=== PATIENT | male | born 1960 | race Caucasian/White ===

== ENCOUNTER 2017-01-21 06:33 | Inpatient (IN) ==
--- NOTE | 2017-01-18 21:46 | Discharge Summary ---
<Nesha Galarza - Last Filed: 01/18/17 21:43> Date of Encounter: 01/18/17 - Discharge Diagnosis (1) Aseptic loosening of prosthetic knee Status: Acute Qualifiers: Encounter type: initial encounter Qualified Code(s): T84.038A - Mechanical loosening of other internal prosthetic joint, initial encounter; Z96.659 - Presence of unspecified artificial knee joint (2) Lumbar spondylosis Priority: Secondary Status: Chronic Qualifiers: Spinal osteoarthritis complication: unspecified spinal osteoarthritis Qualified Code(s): M47.816 - Spondylosis without myelopathy or radiculopathy, lumbar region (3) FRANCESCA (obstructive sleep apnea) Priority: Secondary Status: Chronic - Discharge Medications Home Medications: Cetirizine HCl [Zyrtec] 10 mg PO DAILY 02/18/16 [History] Citalopram [CeleXA] 20 mg PO DAILY 02/18/16 [History] Fluticasone Propionate Nasal [Flonase] 1 spr NS DAILY PRN 02/18/16 [History] Lisinopril/Hydrochlorothiazide [Zestoretic 20-12.5 mg Tablet] 1 each PO BID 03/01 [History] Montelukast [Singulair] 10 mg PO DAILY 02/18/16 [History] Pravastatin Sodium [Pravachol] 20 mg PO DAILY 02/18/16 [History] Aspirin Enteric Coated [Aspirin EC] 325 mg PO DAILY #21 tablet. 01/18/17 [Rx] OxyCODONE Immed Rel [Roxicodone 5 MG] 5 - 10 mg PO Q6HR PRN #40 tablet 01/18/17 [Rx] Aspirin Enteric Coated [Aspirin EC] 81 mg PO DAILY 01/21/17 [History] Meloxicam 15 mg PO DAILY 01/21/17 [History] Allergies/Adverse Reactions: Allergies No Known Allergies Allergy (Verified 01/21/17 07:41) Primary care physician: Radha Durant CNP - Patient Status Disposition: Home, Self-Care Condition: Good - Discharge Instructions Follow Up With: Nesha Galarza, PAC [Physician Keyliner] - 01/29/17 10:30 am Additional Instructions: Discharge Instructions: Total Knee Replacement Please call [facility] ([phone]), your Primary Care Physician, or report to the Emergency Room if you have any of the following symptoms: Nausea, vomiting, fever greater that 101.5, swelling, chest pain, shortness of breath, increased pain/redness/drainage/odor for your incision site, numbness/ tingling, or any other concerning symptoms. ACTIVITY:Weight-bearing as tolerated. You may progress off support (cruthches or walker) as tolerated. MEDICATIONS: Upon discharge resume your home medications. Take all the medications as prescribed. Take a stool softener if taking narcotic pain medications. Stool softeners are only effective if you drink enough fluids. Drink 6-8 glass of water or fluids a day, unless this is not allowed for another health problem. Despite using stool softeners, if you haven't had a bowel movement in 3 days, please switch to a gentle laxative. Gentle laxatives are sold over the counter. You should have a bowel movement within 24 hours, if not call the office. You will be discharged from the hospital with a prescription for pain medication. You are encouraged to decrease the use of narcotic pain medication as tolerated. Should you require a refill, please call the office. [facility] prescribes narcotic pain medication for only 4-6 weeks after surgery. If you require pain medication beyond this time periord, you may be referred to your Primary Care Physician or to the Pain Clinic for further evaluation. Plan ahead for refills on pain medication as many narcotics either need to be picked up at the office or mailed. It is best to call 48-72 hours in advance of needing a prescription refill so you don't run out of medication. To help control the post-operative pain, you may take NSAIDs (Aleve,Advil, Motrin, ibuprofen, naprosyn) or Tylenol as prescribed on the bottle in addition to the pain medication. ANTICOAGULATION (blood thinners): Continue your Aspirin, Lovenox or Coumadin as prescribed to help prevent a blood clot in the leg or in the lungs. As long as your incision remains dry and you tolerate the NSAIDs (Aleve, Advil, Motrin, ibuprofen, naprosyn), it is OK to use the NSAIDS while you are taking your anticoagulation medication. Should your incision start to drain, stop the NSAID and contact our office. Common symptoms of blood clot in the legs include: localized pain, swelling, calf tenderness, redness or discoloration of the skin. Blood clot in the lung symptoms include: shortness of breath, rapid pulse, sweating, and chest pain that worsens with deep breathing, coughing up blood, lightheadedness, feelings of anxiety. If you experience any of these symptoms notify your physician immediately, go to the emergency room, or if having trouble breathing, call 911. WOUND CARE: Leave the dressing on for 7 days. You may change the dressing if it becomes saturated greater than 50%. You can shower but not a tub bath or submerge your incision in water. Wash your hands with antibacterial soap, rinse and dry prior to any wound care. If you have james the visiting nurse or rehab facility can remove the stapes 10-14 [address] surgery [address] steri- strips across the wound. Leave the steri-strips in place until they fall off on their won. You may let water from the shower run on top of the steri-stirips. If you do not have a visiting nurse or rehab facility, you will need to return to the office at 10-14 days for the james to be removed. FOLLOW-UP: Please follow up with your surgeon in the orthopedic clinic in 4 weeks from the day of surgery. If you have james that need to be removed, you will need to come back to the office in 10-14 days from the day of surgery. - Hospital Course Hospital course: Mr. Rodriguez is a 56 year old male - Time Spent with Patient Total time spent providing and/or coordinating discharge services: <Merrick Beach - Last Filed: 01/22/17 08:38> Date of Encounter: 01/22/17 Time of Encounter: 08:38 - Discharge Diagnosis (1) Morbid obesity with BMI of 45.0-49.9, adult Priority: Secondary Status: Chronic (2) Aseptic loosening of prosthetic knee Priority: Primary Status: Acute Qualifiers: Encounter type: subsequent encounter Qualified Code(s): T84.038D - Mechanical loosening of other internal prosthetic joint, subsequent encounter; Z96.659 - Presence of unspecified artificial knee joint (3) Lumbar spondylosis Priority: Secondary Status: Chronic Qualifiers: Spinal osteoarthritis complication: unspecified spinal osteoarthritis Qualified Code(s): M47.816 - Spondylosis without myelopathy or radiculopathy, lumbar region (4) FRANCESCA (obstructive sleep apnea) Priority: Secondary Status: Chronic Primary care physician: Radha Durant CNP - Patient Status Functional capacity at discharge: uses cane/walker Overall status at discharge: patient is progressing back to baseline - Hospital Course Hospital course: Mr. Rodriguez is a 56 year old male The patient had an uneventful postoperative course. They received antibiotics and physical therapy and were discharged in stable condition. There will follow -up in the office in 2 weeks. Aspirin DVT prophylaxis - Time Spent with Patient Total time spent providing and/or coordinating discharge services:
--- NOTE | 2017-01-21 06:53 | History & Physical Report ---
Date of Encounter: 01/21/17 Time of Encounter: 06:52 24 Hour HP Update - Instructions Instructions: If the History and Physical is less than 30 days old and was completed prior to A.M. admission and or procedure and has NOT been updated on calendar day of procedure please complete this update prior to performing procedure. - Update Patient reports changes in Medical Condition: No Changes in assessment/condition: No Changes in Medication: No Preop tests/diagnostics Reviewed: Yes Surgery Remains Indicated: Yes Consent for Planned Operative Procedure(s) Verified: Yes - Pre-Operative Checklist Preoperative Checklist Indicated: No Prophylactic Antibiotic Ordered: Yes Is VTE Prophylaxis Indicated?: Yes
[2017-01-21] MEDS ORDERED: CeFAZolin Pre 2,000 MG/100 ML 2,000 MG/100 ML BAG IVPB ONE (07:04)
[2017-01-21] MEDS ORDERED: Albuterol 2.5 MG/3 ML NEBULIZER IH ONE (07:04)
--- NOTE | 2017-01-21 07:09 | Anesthesia Evaluation PreOp ---
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 History: Denies Any Significant HX Other Medical History: Denies Any Significant HX Anesthesia History: No Prior Anesthetic Complications, Past Anesthesia Alcohol Use: none Drug use: none Medications and Allergies Cetirizine HCl [Zyrtec] 10 mg PO DAILY 02/18/16 [History] Citalopram [CeleXA] 20 mg PO DAILY 02/18/16 [History] Fluticasone Propionate Nasal [Flonase] 1 spr NS DAILY 02/18/16 [History] Gabapentin [Neurontin] 300 mg PO BID 02/18/16 [History] Lisinopril/Hydrochlorothiazide [Zestoretic 20-12.5 mg Tablet] 1 each PO DAILY [History] Montelukast [Singulair] 10 mg PO HS 02/18/16 [History] Pravastatin Sodium [Pravachol] 20 mg PO DAILY 02/18/16 [History] Hyoscyamine SL [Levsin SL] 0.125 mg SL TID #7 tab.subl 09/17/16 [Rx] Omeprazole [PriLOSEC] 40 mg PO DAILY #14 capsule. 09/17/16 [Rx] Loratadine/Pseudophed (12 HR) [Claritin D (12HR)] 1 each PO BID #20 tab.er.12h 12/04/16 [Rx] MethylPREDNISolone [Medrol] 4 mg PO DAILY #21 tablet 12/04/16 [Rx] Aspirin Enteric Coated [Aspirin EC] 325 mg PO DAILY #21 tablet. 01/18/17 [Rx] OxyCODONE Immed Rel [Roxicodone 5 MG] 5 - 10 mg PO Q6HR PRN #40 tablet 01/18/17 [Rx] Allergies No Known Allergies Allergy (Verified 11/21/16 09:23) - Meds/Allergy Pre-op Review Medications Reviewed: Yes Allergies Reviewed: Yes Beta Blockers on Current Med List: No Anesthesia Results - Labs Laboratory Tests 01/08/17 01/08/17 01/08/17 08:20 08:20 08:20 WBC 4.7 Hgb 13.0 Hct 41.4 Plt Count 252 INR 1.2 Sodium 142 Potassium 4.0 Chloride 107 Carbon Dioxide 23 BUN 15 Creatinine 0.88 - Imaging EKG: image reviewed (SR galicia sinus arrythmia, IRBBB) Anesthesia Exam O2 Sat Height 1.55 m Height 1.55 m Weight 115.212 kg Weight 115.212 kg O2 Sat by Pulse Oximetry 96 Vital Signs Temp Pulse Resp BP Pulse Ox 99.0 F 66 18 125/79 96 01/21/17 06:48 01/21/17 06:48 01/21/17 06:48 01/21/17 06:48 01/21/17 06:48 Height: 5'1'' Weight: 254# NPO (# of Hours): > 8 hrs Pain Scale: 0 Pain Scale Used: Numeric (1 - 10) - HEENT Pupil (Motor): Pupils equal, EOMI Mallampati: III Teeth: Normal Oral Opening: Less than or equal to 3 - METAL SASH SETTER LOC: Oriented METAL SASH SETTER Motor: Normal RUE, Normal LUE, Normal RLE, Normal LLE, Normal Face METAL SASH SETTER Sensory: Normal: RUE, LUE, RLE, LLE, Face - Cardiac Rhythm: Regular Murmur: None JVD: No Carotid Bruit: No - Pulmonary Breath Sounds: bilateral Clear Respiratory Effort: Symmetrical Anesthesia Assess/Plan ASA Score: 3 Modified Marla Scale for Level of Consciousness: Cooperative, oriented, and tranquil Anesthetic Plan: General, Regional (Right Femoral Nerve Block) Autologous Blood: Yes Monitoring Plan: Standard Monitors Recovery Plan: PACU
[2017-01-21] MEDS ORDERED: *HR* Midazolam HCl 2 MG/2 ML VIAL ONE (07:12)
[2017-01-21] MEDS ORDERED: *HR* FentaNYL (PF) 100 MCG/2 ML VIAL ONE (07:12)
[2017-01-21] MEDS ORDERED: *HR* Propofol 200 MG/20 ML VIAL IVP ONE (07:13)
[2017-01-21] MEDS ORDERED: Lidocaine -MPF 2% 2 ML VIAL ONE (07:14)
[2017-01-21] MEDS ORDERED: Lidocaine -MPF 4% 5 ML AMPUL ONE (07:15)
[2017-01-21] MEDS ORDERED: Ringers Solution, Lactated 1,000 ML IVC SCH ×2 (07:15→09:00)
[2017-01-21] MEDS ORDERED: ROPIVACAINE HCL/PF 0.5% 30 ML VIAL ONE (07:57)
[2017-01-21] MEDS ORDERED: Bupivacaine/Clonidine Syringe 1 EACH SYRINGE ONE (07:58)
[2017-01-21] MEDS ORDERED: Ondansetron 4 MG/2 ML VIAL ONE (08:44)
[2017-01-21] MEDS ORDERED: Dexamethasone 4 MG/ML VIAL ONE (08:44)
[2017-01-21] MEDS ORDERED: Ketorolac 30 MG/ML VIAL ONE (08:44)
[2017-01-21] MEDS ORDERED: *HR* Promethazine 25 MG/ML VIAL IVP PRN (08:55)
[2017-01-21] MEDS ORDERED: *HR* HYDROmorphone (PF) 1 MG/ML SYRINGE IVP PRN ×2 (08:55→11:10)
--- NOTE | 2017-01-21 08:59 | Anesthesia Procedures ---
Date of Encounter: 01/21/17 Time of Encounter: 08:00 Procedures: Anesthesia - Nerve Block Procedure Date: 01/21/17 Time: 08:00 Allergies/Adv Reactions: NKA Pre-op Diagnosis: Right knee aseptic loosening tibia Surgical Procedure: Right total knee arthroplasty revision Checklist: Correct Patient Identifier, Correct procedure, History checked Correct side: Right Blood Thinner: No Monitor Applied: EKG, BP, Pulse Oximetry Supplemental Oxygen via Nasal Cannula (L/min): 2 Sedation: Versed (mg): 2 Sedation: Fentanyl (mcg): 100 Indication: Post Op Analgesia Pre-op Neuro Deficits: No Block Type: Femoral, Other (IPAC) Catheter placed: No Sterile Technique: Yes Ultrasound used: Yes Anatomy identified: Yes Visual spread of Local: Yes Neuro Stimulation: Yes Nerve Stimulator Range: 0.2 - 0.4 mA Blood on Needle Aspiration: No Smooth Injection of Local: Yes Pain with Injection of Local: No Prep: Chlorhexadine Needle: 22 x 50 mm Stimuplex, 21 x 100 mm Stimuplex Local: 0.25% Bupivicaine w/Clonidine 20 mcg/cc (20ml), Ropivacaine (30ml) Volume (cc): 30ml rop 20ml bup ipac Number of Attempts: 1 Complications: None/effective block Vitals: Vital Signs Temperature 99.0 F 01/21/17 06:48 Pulse Rate 66 01/21/17 06:48 Respiratory Rate 18 01/21/17 06:48 Blood Pressure 125/79 01/21/17 06:48 O2 Sat by Pulse Oximetry 96 01/21/17 06:48 Temperature 99.0 F 01/21/17 07:21 Pulse Rate 76 01/21/17 07:55 Respiratory Rate 16 01/21/17 07:55 Blood Pressure 129/75 01/21/17 07:55 O2 Sat by Pulse Oximetry 93 L 01/21/17 07:55
--- NOTE | 2017-01-21 09:11 | Orthopedic Operative Note ---
Date of procedure: 01/21/17 Pre-op diagnosis: Aseptic loosening right tibial component Post-op diagnosis: same Procedure: Procedure: 8 revision tibial component Estimated blood loss: 200 cc Hardware: Arthrex tibia size 5, 14 x 80 stem, 16 PS Nia Exam Under anesthesia: Full flexion full extension well-healed incision no swelling or erythema no varus valgus instability Procedural Notes: Loosening of tibial component Operative procedure: The patient was brought to the operating room and placed on the operating room table. After general anesthesia was administered the operative knee was examined. Findings were noted in the exam under anesthesia. The operative extremity was prepped and draped in sterile surgical fashion. The patient received IV antibiotics prior to skin incision. A standard midline incision was made centered over the patella. The incision was made through the skin and subcutaneous tissue through the old incision. A medial parapatellar tendon approach was performed. Care was taken to preserve tissue along the medial aspect of the patella. And to protect the patella tendon. The deep MCL was released off the medial tibia. The infra patella fat pad was excised. Cultures were obtained as well as Gram stain. 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 An extensive synovectomy was performed. The knee was brought into flexion the tibial poly-was removed. The femur was well fixed. Attention was then turned to the tibial component. The tibial component was loose and removed with an osteotome without any bone loss. Tibia was recut just below the level of the cement mantle. The tibia was prepared first sized to a 5 reamed to a 14 x 80 stem. The finishing punch was seated. Trial had good fit and fixation. Trial reduction revealed full extension and full flexion no varus valgus instability with an 14 PS Nia. Trial components removed knee sat for 2 minutes with a Betadine saline solution. It was irrigated out with pulse irrigation. Components were assembled on the back table. The tibia cemented. The 16 PS Nia was seated and secure. The had full flexion and full extension and excellent patella tracking no varus valgus instability. After the cement hardened the knee was irrigated out again. The knee was taken through a range of motion had excellent patella tracking. The extensor mechanism was closed with a running #2 Fiberwire suture and a running #2 PDS suture. The deep tissue was irrigated and closed deep with #1 PDS suture superficially with 0 PDS suture. The skin was closed with skin james. The patient was placed in a sterile dressing and postoperative brace. They were extubated and transferred to recovery room in stable condition. Anesthesia: TAMRA Surgeon: Merrick Beach Private Duty Aide: Nesha Galarza Condition: stable Disposition: PACU
--- NOTE | 2017-01-21 10:05 | Anesthesia Evaluation Post Op ---
Date of Encounter: 01/21/17 Time of Encounter: 10:04 - Vital Signs Vital Signs: Vital Signs/O2 Sat, Most Current Temp Pulse Resp BP Pulse Ox 98.1 F 70 16 113/70 94 L 01/21/17 09:37 01/21/17 09:57 01/21/17 09:57 01/21/17 09:57 01/21/17 09:57 - Lungs Lungs: Clear Ascult./Percussion - Airway Airway: Non-obstructed - Cardiovascular Regular Rate - Mental Status Mental Status: Alert & Oriented, Answers Appropriately - Pain Pain Scale: 0 Pain Scale used: Numeric (1 - 10) - Nausea Vomiting Nausea Vomiting: Not Present - Hydration Hydration: NPO, Has not voided - Discharge PostOp Status: Transfer Patient to floor
[2017-01-21 10:53] LABS: Hematocrit 38.9 % (37.5-50.1); Hemoglobin 12.3 g/dL (12.9-16.9)
[2017-01-21] MEDS ORDERED: Ondansetron 4 MG/2 ML VIAL IVP PRN (11:10)
[2017-01-21] MEDS ORDERED: *HR* OxyCODONE Immed Rel 5 MG TABLET PO PRN (11:10)
[2017-01-21] MEDS ORDERED: MOM Conc 10 ML UD.LIQ PO PRN (11:10)
[2017-01-21] MEDS ORDERED: Acetaminophen 325 MG TABLET PO PRN (11:10)
[2017-01-21] MEDS ORDERED: Naloxone 0.4 MG/ML INJ IVP PRN (11:10)
[2017-01-21] MEDS ORDERED: Sennosides 8.6 MG TABLET PO PRN (11:10)
[2017-01-21] MEDS ORDERED: Temazepam 15 MG CAPSULE PO PRN (11:10)
[2017-01-21] MEDS ORDERED: Fluticasone Propionate Nasal 50 MCG/SPRAY BOTTLE NS PRN (11:10)
[2017-01-21] MEDS: Aspirin Enteric Coated 81 MG Tablet PO SCH (13:33)
[2017-01-21] MEDS: Ringers Solution, Lactated 1,000 ML IVC SCH (13:33)
[2017-01-21] MEDS: Loratadine 10 MG TABLET PO SCH (13:33)
[2017-01-21] MEDS: Lisinopril-HCTZ 20-12.5mg TABLET PO SCH ×2 (13:40→20:52)
[2017-01-21] MEDS: *HR* OxyCODONE Immed Rel 5 MG TABLET PO PRN ×2 (15:22→22:01)
[2017-01-21] MEDS: ceFAZolin 2,000 MG in D5% in Water 100 ML IVPB SCH (17:54)
[2017-01-21] MEDS ORDERED: *HR* Enoxaparin 30 MG/0.3 ML SYRINGE SQ SCH (18:00)
[2017-01-21] MEDS: *HR* Enoxaparin 30 MG/0.3 ML SYRINGE SQ SCH (19:11)
[2017-01-22] MEDS: ceFAZolin 2,000 MG in D5% in Water 100 ML IVPB SCH (01:13)
[2017-01-22] MEDS: Ringers Solution, Lactated 1,000 ML IVC SCH (02:16)
[2017-01-22] MEDS: *HR* Enoxaparin 30 MG/0.3 ML SYRINGE SQ SCH (05:08)
[2017-01-22 05:27] LABS: Hematocrit 33.5 % (37.5-50.1); Hemoglobin 10.8 g/dL (12.9-16.9)
[2017-01-22 05:35] LABS: BUN/Creatinine Ratio 18 (6-26); Blood Urea Nitrogen 14 mg/dL (8-26); Calcium 8.3 mg/dL (8.6-10.8); Carbon Dioxide 26 mEq/L (19-29); Chloride 103 mEq/L (98-109); Glucose 103 mg/dL (70-99); Osmolality,Calculated 285 (280-300); Sodium 137 mEq/L (136-145); eGFR For African Americans > 60 (> 60); eGFR For Non-African Americans > 60 (> 60)
--- NOTE | 2017-01-22 08:39 | Orthopedics Progress Note ---
Date of Encounter: 01/22/17 Time of Encounter: 08:39 - Assessment and Plan (1) Morbid obesity with BMI of 45.0-49.9, adult Current Visit: Yes Status: Chronic (2) Aseptic loosening of prosthetic knee Current Visit: No Status: Acute Qualifiers: Encounter type: subsequent encounter Qualified Code(s): T84.038D - Mechanical loosening of other internal prosthetic joint, subsequent encounter; Z96.659 - Presence of unspecified artificial knee joint (3) Lumbar spondylosis Current Visit: No Status: Chronic Qualifiers: Spinal osteoarthritis complication: unspecified spinal osteoarthritis Qualified Code(s): M47.816 - Spondylosis without myelopathy or radiculopathy, lumbar region (4) FRANCESCA (obstructive sleep apnea) Current Visit: No Status: Chronic Subjective Interval history: Patient was seen this morning doing well without complaints. Afebrile vital signs stable. Operative extremity: Neurovascularly intact Dressing clean dry and intact Calves nontender Assessment and plan: Continue with postoperative care Discharge today Objective Vital signs: Vital Signs Temp Pulse Resp BP Pulse Ox 01/22/17 06:35 97.8 F 68 16 114/69 95 01/22/17 04:01 97.8 F 76 16 114/65 96 01/22/17 00:30 98.0 F 71 16 103/51 95 01/21/17 19:14 98.3 F 76 16 123/67 92 L 01/21/17 18:37 98.0 F 76 18 116/65 95 01/21/17 14:53 98.6 F 84 18 121/69 95 01/21/17 12:10 98.2 F 68 15 119/74 96 01/21/17 11:10 72 14 112/71 95 01/21/17 10:53 70 15 117/75 95 01/21/17 10:36 95 01/21/17 10:34 95 01/21/17 10:27 98.0 F 69 14 113/72 95 01/21/17 10:07 98 F 69 16 112/68 95 01/21/17 09:57 70 16 113/70 94 L 01/21/17 09:47 75 16 112/70 95 01/21/17 09:37 98.1 F 84 16 107/69 93 L Intake and Output 03/08/17 03/09/17 03/09/17 23:59 07:59 15:59 Intake Total 800 / 800 1000 / 1000 Output Total 800 / 800 900 / 900 Balance 0 / 0 100 / 100 Intake: IV Fluids 100 / 100 1000 / 1000 Lactated Ringers 1,000 ML 1000 / 1000 @ 75 mls/hr IVC .[id number] [facility] Rx#:[id number] Ancef 2,000 MG In 100 / 100 Dextrose 5% 100 ML @ 200 mls/hr IVPB Q8HR [facility] Rx#: [id number] Oral 700 / 700 Output: Urine 800 / 800 900 / 900 Other: Meal Dinner Percent of Meal Consumed 100% - Labs CBC & BMP: 01/22/17 05:11 01/22/17 05:11 Labs: Abnormal lab results Hgb 10.8 g/dL (12.9-16.9) L D 01/22/17 05:11 Hct 33.5 % (37.5-50.1) L 01/22/17 05:11 Glucose 103 mg/dL (70-99) H 01/22/17 05:11 Calcium 8.3 mg/dL (8.6-10.8) L 01/22/17 05:11 - VTE Documentation of Mechanical Device: Venous foot pump, device Consult Discharge Plan - Plan Additional Instructions: Discharge Instructions: Total Knee Replacement Please call [facility] ([phone]), your Primary Care Physician, or report to the Emergency Room if you have any of the following symptoms: Nausea, vomiting, fever greater that 101.5, swelling, chest pain, shortness of breath, increased pain/redness/drainage/odor for your incision site, numbness/ tingling, or any other concerning symptoms. ACTIVITY:Weight-bearing as tolerated. You may progress off support (cruthches or walker) as tolerated. MEDICATIONS: Upon discharge resume your home medications. Take all the medications as prescribed. Take a stool softener if taking narcotic pain medications. Stool softeners are only effective if you drink enough fluids. Drink 6-8 glass of water or fluids a day, unless this is not allowed for another health problem. Despite using stool softeners, if you haven't had a bowel movement in 3 days, please switch to a gentle laxative. Gentle laxatives are sold over the counter. You should have a bowel movement within 24 hours, if not call the office. You will be discharged from the hospital with a prescription for pain medication. You are encouraged to decrease the use of narcotic pain medication as tolerated. Should you require a refill, please call the office. [facility] prescribes narcotic pain medication for only 4-6 weeks after surgery. If you require pain medication beyond this time periord, you may be referred to your Primary Care Physician or to the Pain Clinic for further evaluation. Plan ahead for refills on pain medication as many narcotics either need to be picked up at the office or mailed. It is best to call 48-72 hours in advance of needing a prescription refill so you don't run out of medication. To help control the post-operative pain, you may take NSAIDs (Aleve,Advil, Motrin, ibuprofen, naprosyn) or Tylenol as prescribed on the bottle in addition to the pain medication. ANTICOAGULATION (blood thinners): Continue your Aspirin, Lovenox or Coumadin as prescribed to help prevent a blood clot in the leg or in the lungs. As long as your incision remains dry and you tolerate the NSAIDs (Aleve, Advil, Motrin, ibuprofen, naprosyn), it is OK to use the NSAIDS while you are taking your anticoagulation medication. Should your incision start to drain, stop the NSAID and contact our office. Common symptoms of blood clot in the legs include: localized pain, swelling, calf tenderness, redness or discoloration of the skin. Blood clot in the lung symptoms include: shortness of breath, rapid pulse, sweating, and chest pain that worsens with deep breathing, coughing up blood, lightheadedness, feelings of anxiety. If you experience any of these symptoms notify your physician immediately, go to the emergency room, or if having trouble breathing, call 911. WOUND CARE: Leave the dressing on for 7 days. You may change the dressing if it becomes saturated greater than 50%. You can shower but not a tub bath or submerge your incision in water. Wash your hands with antibacterial soap, rinse and dry prior to any wound care. If you have james the visiting nurse or rehab facility can remove the stapes 10-[address] surgery [address] steri- strips across the wound. Leave the steri-strips in place until they fall off on their won. You may let water from the shower run on top of the steri-stirips. If you do not have a visiting nurse or rehab facility, you will need to return to the office at 10-14 days for the james to be removed. FOLLOW-UP: Please follow up with your surgeon in the orthopedic clinic in 4 weeks from the day of surgery. If you have james that need to be removed, you will need to come back to the office in 10-14 days from the day of surgery. Referrals: Nesha Galarza, PAC [Physician Rn Geriatric] - 01/29/17 10:30 am
[2017-01-22] MEDS: Lisinopril-HCTZ 20-12.5mg TABLET PO SCH (09:22)
[2017-01-22] MEDS: Aspirin Enteric Coated 81 MG Tablet PO SCH (09:22)
[2017-01-22] MEDS: Loratadine 10 MG TABLET PO SCH (09:23)
[2017-01-22] MEDS: *HR* OxyCODONE Immed Rel 5 MG TABLET PO PRN (10:08)
[2017-01-22 11:53] VITALS: BP 117/68
== END 2017-01-22 12:30 | disposition home or self-care (01) | DRG 467 ==
LOC: SAMDAY 06:33 → 3NENU 11:47 → 3ANU 12:29 → 3NENU 19:06
PROVIDERS: ADMIT Orthopaedic Surgery; ATTEND Orthopaedic Surgery

== ENCOUNTER 2018-01-29 19:18 | Observation (INO) ==
--- NOTE | 2018-01-29 20:06 | Emergency Department Note ---
Disposition Clinical Impression: Chest pain Qualifiers: Chest pain type: unspecified Qualified Code(s): R07.9 - Chest pain, unspecified Disposition: Admitted As Inpatient Condition: Good Time of Disposition: 00:41 Chest Pain HPI - General Chief Complaint: ED Chest Pain Stated Complaint: Chest pressure/hernia/pedro Time Seen by Provider: 01/29/18 19:50 Source: patient Mode of arrival: ambulatory Limitations: no limitations Vital Signs Reviewed: Yes Nursing Notes Reviewed: Yes - History of Present Illness HPI Narrative: Patient is a 57-year-old male with past medical history of hypertension and high cholesterol, recent cervical spinal fusion on 01/16/2018. He presents today due to epigastric chest pressure that radiates to his right chest. He also claims of pleuritic type chest pain that is sharp in nature when he takes a deep breath in and out. Denies any other radiation, nausea, vomiting, sweating, fevers, diarrhea, abdominal pain. Denies any neck pain or back pain. He does admit to some mild shortness of breath. He felt that this is possibly gas because he has been belching all day but he states that it has been constant and has not lessened at all. Denies any previous ND or stents. Severity scale (1-10): 7 - Related Data Home Medications Medication Instructions Recorded Confirmed Aspirin 325 mg PO DAILY 01/06/18 01/06/18 Celecoxib [Celebrex] 200 mg PO DAILY 01/06/18 01/06/18 Cetirizine HCl [All Day Allergy] 10 mg PO DAILY 01/06/18 01/06/18 Citalopram [CeleXA] 20 mg PO DAILY 01/06/18 01/06/18 Dicyclomine [Bentyl] 20 mg PO QID 01/06/18 01/06/18 Famotidine [Pepcid] 20 mg PO HS 01/06/18 01/06/18 Fluticasone Propionate Nasal 2 spr NS DAILY PRN 01/06/18 01/06/18 [Flonase] Lisinopril-HCTZ 20-12.5 [Prinzide 1 tab PO DAILY 01/06/18 01/06/18 20-12.5] Meloxicam 15 mg PO DAILY 01/06/18 01/06/18 Montelukast [Singulair] 10 mg PO HS 01/06/18 01/06/18 Pravastatin Sodium [Pravachol] 40 mg PO HS 01/06/18 01/06/18 Previous Rx's Medication Instructions Recorded OxyCODONE Immed Rel [Roxicodone 5 5 mg PO Q4HR PRN 7 Days #30 tablet 01/07/18 MG] Allergies Allergy/AdvReac Type Severity Reaction Status Date / Time No Known Allergies Allergy Verified 01/06/18 07:20 All systems ED: reviewed and negative except as stated. Constitutional: Denies: fever Cardiovascular: Reports: chest pain. Denies: palpitations Respiratory: Reports: dyspnea. Denies: cough, wheezes Gastrointestinal: Denies: abdominal pain, nausea, vomiting, diarrhea Genitourinary: Denies: urgency, dysuria Integumentary: Denies: rash Neurological: Denies: headache, weakness, numbness, paresthesias Chest Pain PMH - Past Medical History Medical history: Reports: other Surgical history: Reports: other Psychiatric history: Reports: no psych history - Social History Smoking Status: Never smoker Alcohol use: Reports: none Drug use: Reports: none Physical Exam - General Limitations: no limitations General appearance: alert - Head Head exam: atraumatic, normocephalic, normal inspection - Eye Eye exam: Present: normal appearance, PERRL, EOMI - ENT ENT exam: normal exam, normal oropharynx, mucous membranes moist - Neck Neck exam: Present: normal inspection, full ROM, trachea midline - Chest Chest inspection: Present: normal inspection, symmetric chest wall rise. Absent : tenderness, rash - Respiratory Respiratory exam: Present: normal lung sounds bilaterally - Cardiovascular Cardiovascular exam: Present: regular rate, normal rhythm, normal heart sounds - Abdominal Exam Abdominal exam: Present: soft, Non-Tender. Absent: tenderness, distention, guarding, rebound, rigidity - Extremities Exam Extremities exam: Present: normal inspection, full ROM. Absent: tenderness, pedal edema - Neurological Exam Neurological exam: Present: alert, oriented X3 - Psychiatric Psychiatric exam: Present: normal affect, normal mood - Skin Skin exam: Present: warm, dry, intact, normal color Course Course Narrative: Vitals within normal limits on my exam. Physical exam was benign. Heart regular rate and rhythm, lungs clear to auscultation, abdomen soft and nontender. Patient no acute distress. Blood pressure is systolic 120s. We will give the patient fentanyl for pain control and aspirin 325 mg. We will hold off on nitroglycerin for now for fear of dropping the patient's pressure. We will obtain basic cardiac workup including chest x-ray, EKG, troponin, we will also obtain d-dimer due to concern for possible PE after recent surgery. 00:38 EKG showed normal sinus rhythm with no acute ST changes. Chest x-ray showed possible left pleural effusion. D-dimer was elevated. chest CTA showed no evidence of any PE. No noting of pleural effusion on chest CT. Troponin negative. Patient required fentanyl and Nubain for pain control. He was also sweating on rechecks. I do not feel comfortable with sending the patient home. He said this chest pain was gone on the most recent reevaluation. However, I recommended that he be admitted for chest pain rule out. Patient was agreeable with this plan. Chest X-Ray 01/29/18 19:25 IMPRESSION: 1. Question left pleural effusion with mild left basilar atelectasis. 2. Mild elevation of the left hemidiaphragm. D/ / Onesimo Desir MD / Onesimo Desir MD Interpreting Provider: Onesimo Desir MD Chest CTA 01/29/18 21:28 IMPRESSION: No evidence of pulmonary embolism or acute pulmonary abnormality. Low lung volume study with elevation of left hemidiaphragm. Scattered subsegmental atelectatic changes are noted. D/ / 01/29/2018 22:30:02 Jere Bowman MD / [facility] Interpreting Provider: Jere Bowman MD Vital Signs Temperature 98.2 F 01/29/18 19:20 Pulse Rate 94 01/29/18 19:20 Respiratory Rate 16 01/29/18 19:20 Blood Pressure 138/85 01/29/18 19:20 O2 Sat by Pulse Oximetry 98 01/29/18 19:20 Temperature 98.2 F 01/29/18 19:20 Pulse Rate 74 01/30/18 00:08 Respiratory Rate 18 01/30/18 00:33 Blood Pressure 120/78 01/30/18 00:33 O2 Sat by Pulse Oximetry 96 01/30/18 00:08 Oxygen Delivery Oxygen Delivery Room Air Chest Pain - MDM Narrative Medical decision making narrative: Vitals within normal limits on my exam. Physical exam was benign. Heart regular rate and rhythm, lungs clear to auscultation, abdomen soft and nontender. Patient no acute distress. Blood pressure is systolic 120s. We will give the patient fentanyl for pain control and aspirin 325 mg. We will hold off on nitroglycerin for now for fear of dropping the patient's pressure. We will obtain basic cardiac workup including chest x-ray, EKG, troponin, we will also obtain d-dimer due to concern for possible PE after recent surgery. 00:38 EKG showed normal sinus rhythm with no acute ST changes. Chest x-ray showed possible left pleural effusion. D-dimer was elevated. chest CTA showed no evidence of any PE. No noting of pleural effusion on chest CT. Troponin negative. Patient required fentanyl and Nubain for pain control. He was also sweating on rechecks. I do not feel comfortable with sending the patient home. He said this chest pain was gone on the most recent reevaluation. However, I recommended that he be admitted for chest pain rule out. Patient was agreeable with this plan. - Medical Records Medical records reviewed: Yes I reviewed the patient's medical records. - Lab Data Lab results reviewed: Yes I reviewed the patient's lab results. Result diagrams: 01/29/18 20:00 01/29/18 20:00 Lab Results 01/29/18 01/29/18 01/29/18 Range/Units 20:00 20:00 20:00 WBC 6.4 (4.3-11.1) K/mcL RBC 5.02 (4.19-5.50) M/mcL Hgb 12.8 L (12.9-16.9) g/dL Hct 40.5 (37.5-50.1) % MCV 80.7 L (83.0-100.0) fL MCH 25.5 L (28.0-33.3) pg MCHC 31.6 (31.6-35.5) g/dL RDW 14.3 (11.5-14.5) % Plt Count 292 (140-400) K/mcL MPV 9.5 (9.4-12.4) fL Immature Gran % 0.3 (0-4) % Seg Neutrophils % 58.4 % Lymphocytes % 27.5 % Monocytes % 9.0 % Eosinophils % 3.9 % Basophils % 0.9 % Neutrophils # 3.7 (1.6-8.9) K/mcL Lymphocytes # 1.8 (0.6-4.6) K/mcL Monocytes # 0.6 (0.0-1.3) K/mcL Eosinophils # 0.3 (0.0-0.6) K/mcL Basophils # 0.1 (0.0-0.2) K/mcL Immature Plt Fraction 4.2 (1.1-6.1) % PT 11.5 (9.4-12.1) Seconds INR 1.1 APTT 36.8 H (26.0-36.0) Seconds D-Dimer 2384 H (0-500) ng/mLFEU Sodium 137 (136-145) mEq/L Potassium 3.5 (3.5-5.1) mEq/L Chloride 104 (98-107) mEq/L Carbon Dioxide 22 L (23-29) mEq/L BUN 13 (6-20) mg/dL Creatinine 0.86 (0.70-1.30) mg/dL Est GFR ( Amer) > 60 (> 60) Est GFR (Non-Af Amer) > 60 (> 60) BUN/Creatinine Ratio 15 (6-26) Glucose 117 H (70-105) mg/dL Calculated Osmolality 285 (280-300) Calcium 9.1 (8.6-10.3) mg/dL Troponin I < 0.03 (< 0.04) ng/mL - Radiology Data Radiology results reviewed: Yes I reviewed the patient's radiology results. Chest X-Ray 01/29/18 19:25 IMPRESSION: 1. Question left pleural effusion with mild left basilar atelectasis. 2. Mild elevation of the left hemidiaphragm. D/ / Onesimo Desir MD / Onesimo Desir MD Interpreting Provider: Onesimo Desir MD Chest CTA 01/29/18 21:28 IMPRESSION: No evidence of pulmonary embolism or acute pulmonary abnormality. Low lung volume study with elevation of left hemidiaphragm. Scattered subsegmental atelectatic changes are noted. D/ / 01/29/2018 22:30:02 Jere Bowman MD / [facility] Interpreting Provider: Jere Bowman MD - EKG Data EKG attestation: Yes I reviewed and interpreted this EKG. EKG results narrative: 01/29/2018 at 19:29. Normal sinus rhythm. Rate 93. AR 122. QRS 114. QTC 396. Normal axis. No acute ST elevation or depression. Possible right bundle branch block in V1. This is unchanged from previous EKG on 12/30/2017. S.B.A.R. - S.B.A.R. Situation: Demographics, MOA Background: Presenting Complaint, Relevant PMH, Meds, & Allergies Assessment: Vital Signs, Course and respsone to treatment, Exam Concerns, Patient/Family Expectation, Pertinant Lab Results, Outstanding Labs Recommendation: Barrier(s) to disposition, Recommendation based on pending studies, treatments, or consults S.B.A.R. Report Given to: Dr. Crowe Attestation Statement - Attestation Attestation: I, Pradip Womack MD, personally evaluated this patient and discussed their management with the resident physician. I reviewed the resident's note and agree with the documented findings, medical decision making, and plan of care. 57-year-old male presents to the emergency department with a complaint of some right lower chest pain which started this afternoon. Pain is worse with deep breathing. No cough or fever. No radiation of the pain. Some shortness of breath. No history of heart disease. On examination patient is a well-developed obese male in no acute distress. He is alert and oriented 3. There is no cyanosis or diaphoresis. Chest is nontender to palpation. Breath sounds are clear and equal bilaterally. Heart regular rate and rhythm. Abdomen soft and nontender with normal bowel sounds. Labs reviewed. Markedly elevated d-dimer. Chest x-ray shows: 1. Question left pleural effusion with mild left basilar atelectasis. 2. Mild elevation of the left hemidiaphragm. CTA of the chest showed: No evidence of pulmonary embolism or acute pulmonary abnormality. EKG shows a normal sinus rhythm with a rate of 93. Moderate IVCD. No acute ST segment elevation or depression. The hospitalist, Dr. Crowe, was consulted and accepted admission of the patient.
[2018-01-29] MEDS ORDERED: Aspirin 81 MG TAB.CHEW PO ONE (20:08)
[2018-01-29] MEDS ORDERED: *HR* FentaNYL (PF) 100 MCG/2 ML VIAL IVP ONE (20:08)
[2018-01-29 20:13] LABS: Basophils # 0.1 K/mcL (0.0-0.2); Basophils % 0.9 %; Eosinophils # 0.3 K/mcL (0.0-0.6); Eosinophils % 3.9 %; Hematocrit 40.5 % (37.5-50.1); Hemoglobin 12.8 g/dL (12.9-16.9); Immature Granulocytes % 0.3 % (0-4); Immature Platelets 4.2 % (1.1-6.1); Lymphocytes # 1.8 K/mcL (0.6-4.6); Lymphocytes % 27.5 %; Mean Corpuscular HGB Conc 31.6 g/dL (31.6-35.5); Mean Corpuscular Hemoglobin 25.5 pg (28.0-33.3); Mean Corpuscular Volume 80.7 fL (83.0-100.0); Mean Platelet Volume 9.5 fL (9.4-12.4); Monocytes # 0.6 K/mcL (0.0-1.3); Neutrophils # 3.7 K/mcL (1.6-8.9); Platelet Count 292 K/mcL (140-400); Red Blood Count 5.02 M/mcL (4.19-5.50); Red Cell Distribution Width 14.3 % (11.5-14.5); Segmented Neutrophils % 58.4 %
[2018-01-29 20:18] LABS: INR 1.1; Prothrombin Time 11.5 Seconds (9.4-12.1)
[2018-01-29 20:20] LABS: Activated Partial Thrombo Time 36.8 Seconds (26.0-36.0)
[2018-01-29 20:32] LABS: Troponin I < 0.03 ng/mL (< 0.04)
[2018-01-29 20:40] LABS: BUN/Creatinine Ratio 15 (6-26); Blood Urea Nitrogen 13 mg/dL (6-20); Calcium 9.1 mg/dL (8.6-10.3); Carbon Dioxide 22 mEq/L (23-29); Chloride 104 mEq/L (98-107); Glucose 117 mg/dL (70-105); Osmolality,Calculated 285 (280-300); Potassium 3.5 mEq/L (3.5-5.1); Sodium 137 mEq/L (136-145); eGFR For African Americans > 60 (> 60); eGFR For Non-African Americans > 60 (> 60)
[2018-01-29] MEDS ORDERED: *HR* Nalbuphine 20 MG/ML AMPUL IVP ONE (21:31)
[2018-01-30] MEDS ORDERED: *HR* HYDROcodone/Acet 5/325 mg TABLET PO PRN (00:59)
[2018-01-30] MEDS ORDERED: Naloxone 0.4 MG/ML INJ IVP PRN (00:59)
[2018-01-30] MEDS ORDERED: *HR* OxyCODONE Immed Rel 5 MG TABLET PO PRN (00:59)
[2018-01-30] MEDS ORDERED: Acetaminophen 325 MG TABLET PO PRN (00:59)
--- NOTE | 2018-01-30 01:58 | Internal Med History&Physical ---
Date of Encounter: 01/30/18 Time of Encounter: 00:30 Assessment and Plan (1) Hypertension Current visit: Yes Status: Acute Continue home medications. BP is well controlled Qualifiers: Hypertension type: essential hypertension Qualified Code(s): I10 - Essential (primary) hypertension (2) Chest pain Current visit: Yes Status: Acute Patient has pleural like chest pain. CTA has been done, no PE, no pneumonia. Etiology is undetermined. Less likely ACS based on the feature of the pain. However, willmonitor pt to r/o ACS. - Place patient on continuous cardiac monitoring - Track 3 sets of troponin. Qualifiers: Chest pain type: chest pain on breathing Qualified Code(s): R07.1 - Chest pain on breathing; R07.81 - Pleurodynia (3) Cervical radiculopathy Current visit: No Status: Chronic Had surgery recently. Internal Medicine - H&P: HPI Chief complaint: Chest pain Admitted From: Home Plans for Post Hospital Care: Home History of present illness: Mr. Rodriguez is a 57 year old male with history of hypertension, hyperlipidemia, S /P cervical spine surgery, hiatal hernia, presented to ER for chest pain. Patient has chronic epigastric pain because of hiatal hernia. Since this afternoon, patient has right-sided chest pain, sharp, 7 out of 10, worsening on deep breath. Patient has mild shortness of breath. No nausea, no diaphoresis. Patient has no fever no cough. Patient denies any injury on the chest wall. In the emergency room, he was found elevated d-dimer. CTA has been done, negative for PE. Patient was admitted for further management. Past Med Surg Social Fam HX - Past Medical History Medical history: other Psychiatric history: no psych history - Past Surgical History Surgical History: other - Social History Smoking Status: Never smoker Smokeless Tobacco Status: No Alcohol use: none Drug use: none - Family History Mother Hx Family Cardiac Disorders: Yes (HTN) Hx Family Endocrine Disorder: Yes (DM) Father Hx Family Cardiac Disorders: Yes (HTN) Hx Family Cancer: Yes (Prostate) Hx Family Endocrine Disorder: Yes (DM) Internal Medicine - H&P: Meds Cetirizine HCl [All Day Allergy] 10 mg PO DAILY 01/06/18 [History] Citalopram [CeleXA] 20 mg PO DAILY 01/06/18 [History] Dicyclomine [Bentyl] 20 mg PO QID 01/06/18 [History] Famotidine [Pepcid] 20 mg PO HS 01/06/18 [History] Fluticasone Propionate Nasal [Flonase] 2 spr NS DAILY PRN 01/06/18 [History] Lisinopril-HCTZ 20-12.5 [Prinzide 20-12.5] 1 tab PO DAILY 01/06/18 [History] Meloxicam 15 mg PO DAILY 01/06/18 [History] Montelukast [Singulair] 10 mg PO HS 01/06/18 [History] Pravastatin Sodium [Pravachol] 40 mg PO HS 01/06/18 [History] 3 Allergy/AdvReac Type Severity Reaction Status Date / Time No Known Allergies Allergy Verified 01/06/18 07:20 All Systems PM: A 10-system review of systems was performed and is negative for pertinent findings except as documented above in the HPI. - Constitutional Vitals: Temp Pulse Resp BP Pulse Ox 97.8 F 72 17 125/80 93 01/30/18 00:44 01/30/18 00:44 01/30/18 00:44 01/30/18 00:44 01/30/18 00:44 General appearance: Present: A&O X 3, no acute distress, answers questions appropriately - Head Head exam: Present: atraumatic, normocephalic - Eye Eye exam: Present: PERRL, conjuntiva pink, sclera anicteric Pupils: Present: PERRL - Neck Neck exam general surgery: Present: supple, trachea midline. Absent: lymphadenopathy - Respiratory Respiratory exam: Present: CTAB. Absent: accessory muscle use, rales, rhonchi, wheezes - Cardiovascular Cardiovascular exam: Present: RRR, +S1, +S2. Absent: diastolic murmur, gallop, rubs, systolic murmur - GI/Abdominal GI/Abdominal exam: Present: normal bowel sounds, soft, no peritoneal signs. Absent: distended, tenderness - Extremities Exam Extremities exam: Present: warm, radial pulses palpable and symmetrical. Absent : calf tenderness, cyanotic, pedal edema - Neurological Exam Neurological exam: Present: CN II-XII intact, oriented X3, no focal deficits. Absent: pronater drift, facial droop, speech deficit - Skin Skin exam: Present: dry, intact Internal Med - H&P Results - Labs CBC & Chem 7: 01/29/18 20:00 01/29/18 20:00 - EKG Data -: EKG Interpreted by Myself EKG shows normal: sinus rhythm Rate: normal
[2018-01-30 02:27] LABS: BUN/Creatinine Ratio 20 (6-26); Blood Urea Nitrogen 17 mg/dL (6-20); Carbon Dioxide 24 mEq/L (23-29); Chloride 105 mEq/L (98-107); Glucose 105 mg/dL (70-105); Osmolality,Calculated 288 (280-300); Potassium 3.6 mEq/L (3.5-5.1); Sodium 138 mEq/L (136-145); eGFR For African Americans > 60 (> 60); eGFR For Non-African Americans > 60 (> 60)
[2018-01-30 02:28] LABS: Basophils % 0.8 %; Eosinophils # 0.2 K/mcL (0.0-0.6); Eosinophils % 4.4 %; Hematocrit 36.9 % (37.5-50.1); Hemoglobin 11.8 g/dL (12.9-16.9); Immature Granulocytes % 0.2 % (0-4); Lymphocytes # 1.7 K/mcL (0.6-4.6); Lymphocytes % 33.5 %; Mean Corpuscular Hemoglobin 25.5 pg (28.0-33.3); Mean Corpuscular Volume 79.9 fL (83.0-100.0); Mean Platelet Volume 9.9 fL (9.4-12.4); Monocytes # 0.6 K/mcL (0.0-1.3); Monocytes % 11.6 %; Neutrophils # 2.5 K/mcL (1.6-8.9); Platelet Count 264 K/mcL (140-400); Red Blood Count 4.62 M/mcL (4.19-5.50); Red Cell Distribution Width 14.4 % (11.5-14.5); Segmented Neutrophils % 49.5 %
--- NOTE | 2018-01-30 10:24 | Event Note ---
Date of Encounter: 01/30/18 Time of Encounter: 10:21 Patient was seen earlier this am by hospitalist. I have seen and examined patient at bedside Presently he does not appear to be any distress. He does complain of occasional inspiratory CP. I do not suspect that CP is cardiac. Troponin are negative CTA negative for PE. We will wait for results of LE doppler and echo.
[2018-01-30] MEDS: Lisinopril-HCTZ 20-12.5mg TABLET PO SCH (12:50)
[2018-01-30] MEDS ORDERED: Famotidine 20 MG TABLET PO SCH (21:00)
[2018-01-31] MEDS: Lisinopril-HCTZ 20-12.5mg TABLET PO SCH (08:40)
[2018-01-31 14:50] VITALS: BP 137/81
--- NOTE | 2018-01-31 15:55 | Discharge Summary ---
- NOTES TO OUTPATIENT PROVIDER Notes to Outpatient Provider: Follow up with PCP in 2-3 days after discharge. Date of Encounter: 01/31/18 Time of Encounter: 15:51 - Discharge Diagnosis (1) Chest pain Priority: Primary Status: Resolved Qualifiers: Chest pain type: chest pain on breathing Qualified Code(s): R07.1 - Chest pain on breathing; R07.81 - Pleurodynia (2) Hypertension Priority: Secondary Status: Chronic Qualifiers: Hypertension type: essential hypertension Qualified Code(s): I10 - Essential (primary) hypertension (3) Cervical radiculopathy Priority: Secondary Status: Chronic Hospital course: Mr. Rodriguez is a 57 year old male admitted for chest pain and DVT rule-out. Patient was admitted for observation to general medical floor with telemetry. Cardiac enzymes trended negative x 3. CTA showed no PE. Preliminary read of BLE ultrasound showed no evidence of VTE. Chest pain resolved the next day. He wants to go home. He will follow up with PCP in 2-3 days after discharge. Patient has met maximum benefit of this hospitalization and will be discharged home in stable condition. Discharge discussed with: patient, nurse - Time Spent with Patient Total time spent providing and/or coordinating discharge services: Less than 30 minutes - Discharge Medications Prescriptions: Atorvastatin [Lipitor] 10 mg PO HS 7 Days #7 tablet Home Medications: Cetirizine HCl [All Day Allergy] 10 mg PO DAILY 01/06/18 [History] Citalopram [CeleXA] 20 mg PO DAILY 01/06/18 [History] Dicyclomine [Bentyl] 20 mg PO QID 01/06/18 [History] Famotidine [Pepcid] 20 mg PO HS 01/06/18 [History] Fluticasone Propionate Nasal [Flonase] 2 spr NS DAILY PRN 01/06/18 [History] Lisinopril-HCTZ 20-12.5 [Prinzide 20-12.5] 1 tab PO DAILY 01/06/18 [History] Meloxicam 15 mg PO DAILY 01/06/18 [History] Montelukast [Singulair] 10 mg PO HS 01/06/18 [History] Pravastatin Sodium [Pravachol] 20 mg PO HS 01/30/18 [History] Atorvastatin [Lipitor] 10 mg PO HS 7 Days #7 tablet 01/31/18 [Rx] Allergies/Adverse Reactions: 3 Allergy/AdvReac Type Severity Reaction Status Date / Time No Known Allergies Allergy Verified 01/30/18 15:29 Date of admission: 01/29/18 23:52 Primary care physician: Radha Durant CNP Discharging clinician: Chris Beebe Anticipated date of discharge: 01/31/18 - Constitutional Vitals: Temp Pulse Resp BP Pulse Ox 98.1 F 70 16 137/81 94 01/31/18 14:49 01/31/18 14:49 01/31/18 14:49 01/31/18 14:49 01/31/18 14:49 General appearance: Present: cooperative, A&O X 3, pleasant, no acute distress, answers questions appropriately - Respiratory Respiratory exam: Present: CTAB. Absent: accessory muscle use, rales, rhonchi, wheezes Additional comments: Normal WOB - Cardiovascular Cardiovascular exam: Present: RRR, +S1, +S2. Absent: diastolic murmur, gallop, rubs, systolic murmur Additional comments: No BLE edema - GI/Abdominal GI/Abdominal exam: Present: normal bowel sounds, soft. Absent: distended, hepatomegaly, mass, splenomegaly, tenderness - Psychiatric Psychiatric exam: Present: normal affect, normal mood. Absent: anxious, depressed - Skin Skin exam: Present: dry, intact, warm. Absent: cyanosis, rash - Patient Status Disposition: Home, Self-Care Condition: Good Functional capacity at discharge: independent ambulation Overall status at discharge: patient is back to baseline - Discharge Instructions Instructions: Chest Pain (DC), Chronic Hypertension (DC) Follow Up With: Radha Durant CNP [Primary Care Provider] - Additional Instructions: Follow up with PCP in 2-3 days after discharge. - Diet and Activity Activity: resume usual activities as tolerated Diet: low fat, low cholesterol, low salt diet, other (Cardiac)
--- NOTE | 2018-02-02 23:02 | Electrocardiograph Report ---
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
== END 2018-01-31 16:27 | disposition home or self-care (01) ==
LOC: EMEROO 19:18 → 3BNU 19:18
PROVIDERS: ADMIT Internal Medicine; ATTEND Registered Nurse

== ENCOUNTER 2018-12-12 08:56 | Observation (INO) ==
[2018-12-12] MEDS ORDERED: *HR* Adenosine 6 MG/2 ML SYRINGE IVP ONE (09:12)
[2018-12-12] MEDS ORDERED: 0.9 % Sodium Chloride 1,000 ML ONE (09:18)
[2018-12-12] MEDS ORDERED: Aspirin 325 MG TABLET PO ONE (09:25)
--- NOTE | 2018-12-12 09:29 | Emergency Department Note ---
Disposition Clinical Impression: Atrial fibrillation with RVR Disposition: Admitted As Inpatient Condition: Fair Referrals: Radha Durant, ERIKA [Partnered Physician] - Forms: ED Satisfaction Letter Time of Disposition: 10:47 General Adult HPI - General Chief complaint: ED Arrhythmia/Palpitations Stated complaint: SVT Time Seen by Provider: 12/12/18 08:58 Source: patient Limitations: no limitations Nursing Notes Reviewed: Yes Vital Signs Reviewed: Yes - History of Present Illness HPI Narrative: Patient is a 58-year-old male presenting to the ER with palpitations. Patient was initially diagnosed on 12/08/2018 with SVT, while in the ER at that point in time, patient was found to be in SVT, he failed vagal maneuvers as well as with adenosine, he was admitted and converted with Cardizem drip. He was placed on 120 mg of Cardizem and aspirin and discharged on 12/09/2018. Patient states that this morning at 6:30, he began to have palpitations, he noticed that he is heart was beating actually fast became lightheaded and dizzy. On arrival to the ER, p atient states he continues to have some lightheaded dizziness with palpitations. No chest pain, shortness of breath, syncope. He states he did take his Cardizem this morning, has taken it since his discharge. He currently has a follow-up appointment with his primary care provider on Thursday and is to be seen by cardiology, Dr. Baptiste, in the next week. Patient states he did not take his aspirin this morning, as he is to have a back procedure in approximately 5 days. Patient denies any recent fevers or chills, no abdominal pain, no nausea or vomiting, no recent change in medications others that already described, no history of NC. Patient does have history of hypertension is been taking his medications. No history of abnormal rhythms in the past. Pain Scale: 0 - Related Data Home Medications Medication Instructions Recorded Confirmed Citalopram [CeleXA] 20 mg PO HS 01/06/18 12/11/18 Dicyclomine [Bentyl] 20 mg PO BID 01/06/18 12/11/18 Famotidine [Pepcid] 20 mg PO DAILY 01/06/18 12/11/18 Fluticasone Propionate Nasal 2 spr NS DAILY PRN 01/06/18 12/11/18 [Flonase] Lisinopril-HCTZ 20-12.5 [Prinzide 1 tab PO BID 01/06/18 12/11/18 20-12.5] Meloxicam 15 mg PO DAILY 01/06/18 12/11/18 Montelukast [Singulair] 10 mg PO DAILY 01/06/18 12/11/18 Aspirin Enteric Coated [Aspirin EC] 81 mg PO DAILY 05/04/18 12/11/18 Ferrous Sulfate 325 mg PO TID 05/04/18 12/11/18 Atorvastatin Calcium [Lipitor] 20 mg PO DAILY 09/04/18 12/11/18 Metformin HCl 500 mg PO QPM 09/04/18 12/11/18 Cetirizine HCl [24Hour Allergy] 10 mg PO DAILY 12/07/18 12/11/18 Ergocalciferol (VITAMIN D2) 50,000 unit SQ WE 12/07/18 12/11/18 [Vitamin D2] Previous Rx's Medication Instructions Recorded PredniSONE [Deltasone] 20 mg PO DAILY #12 tablet 12/11/18 Allergies Allergy/AdvReac Type Severity Reaction Status Date / Time No Known Allergies Allergy Verified 12/11/18 13:33 All systems ED: reviewed and negative except as stated. Review of Systems: As Per HPI Constitutional: Denies: fever, chills, weakness, weight change ENT ED: Denies: ear pain, throat pain, dental pain, hearing loss, epistaxis, congestion, dysphagia Cardiovascular: Reports: palpitations. Denies: chest pain, dyspnea on exertion, syncope Respiratory: Denies: cough, dyspnea, wheezes, hemoptysis, stridor Gastrointestinal: Reports: as per HPI. Denies: abdominal pain, nausea, vomiting Genitourinary: Denies: urgency, dysuria, frequency, hematuria Musculoskeletal: Denies: back pain Integumentary: Denies: rash, abrasion Neurological: Reports: other (Affirms dizziness). Denies: headache, weakness, numbness, paresthesias, confusion Endocrine: Denies: fatigue Past Medical History - Past Medical History Attestation: Yes The following information was validated with the patient. Source: patient Medical history: Reports: arthritis, hypertension, SVT Surgical history: Reports: orthopedic, other, other Psychiatric history: Reports: depression - Social History Smoking Status: Never smoker Smokeless Tobacco Status: No Alcohol use: Reports: none Drug use: Reports: none Physical Exam - General Limitations: no limitations General appearance: alert, in no apparent distress - Head Head exam: atraumatic, normocephalic, normal inspection - Eye Eye exam: Present: normal appearance, PERRL, EOMI - ENT ENT exam: normal exam, normal oropharynx, mucous membranes moist - Neck Neck exam: Present: normal inspection, full ROM, trachea midline - Chest Chest inspection: Present: normal inspection, symmetric chest wall rise - Respiratory Respiratory exam: Present: normal lung sounds bilaterally - Cardiovascular Cardiovascular exam: Present: normal rhythm, tachycardia - Abdominal Exam Abdominal exam: Present: soft, Non-Tender. Absent: tenderness, distention, guarding, rebound, rigidity - Extremities Exam Extremities exam: Present: normal inspection, full ROM, normal capillary refill. Absent: tenderness, pedal edema - Neurological Exam Neurological exam: Present: alert, oriented X3, CN II-XII intact - Psychiatric Psychiatric exam: Present: normal affect, normal mood - Skin Skin exam: Present: warm, dry, intact, normal color. Absent: rash, pallor Course Vital Signs Temperature 97.8 F 12/12/18 09:00 Pulse Rate 121 12/12/18 09:00 Respiratory Rate 24 12/12/18 09:00 Blood Pressure 98/71 12/12/18 09:00 O2 Sat by Pulse Oximetry 99 12/12/18 09:00 Temperature 97.8 F 12/12/18 09:00 Pulse Rate 112 12/12/18 09:47 Respiratory Rate 20 12/12/18 09:47 Blood Pressure 108/69 12/12/18 09:47 O2 Sat by Pulse Oximetry 98 12/12/18 09:47 Oxygen Delivery Oxygen Delivery Room Air Medical Decision Making - [facility] Narrative Medical decision making narrative: Patient is a 58-year-old male presenting with palpitations. Patient was initially diagnosed with SVT, discharged on 12/09/2018 on Cardizem 120 milligrams. He was also told to take aspirin daily. Patient states that 6:30 this morning, he noticed palpitations in his heart was racing very fast. On arrival, patient is in no acute distress and intake vitals noted 120 bpm, on examination, patient is tachycardic, appears to be SVT, initial EKG was performed at 910 which shows SVT with a ventricular rate of 175. Patient was moved to, room, pads were applied, patient was given 1 L of fluids, while in the room, patient appeared to have decrease in rate into the 120s, which appeared to be A. fib with RVR. Initially patient was slightly hypotensive with a systolic blood pressure in the 90s, after fluids, this increased to 100 systolic. Adenosine was not given, he was given a 10 mg bolus of Cardizem. Was notified by nursing, the patient's rate after the initial bolus was in the 110s. Patient continues to well, he was started on a second liter of fluids as well as started on a Cardizem drip. Patient is been maintaining in the 110s. CBC, BMP as well as chest x-ray and further blood were all unremarkable. At this poi nt in time, with the patient for A. fib with RVR. Patient is remained stable while in the ER. - Medical Records Medical records reviewed: Yes I reviewed the patient's medical records. - Lab Data Lab results reviewed: Yes I reviewed the patient's lab results. Result diagrams: 12/12/18 09:08 12/12/18 09:08 Lab Results 12/12/18 12/12/18 12/12/18 Range/Units 09:08 09:08 09:08 WBC 9.2 D (4.3-11.1) K/mcL RBC 5.56 H (4.19-5.50) M/mcL Hgb 14.5 D (12.9-16.9) g/dL Hct 45.8 (37.5-50.1) % MCV 82.4 L (83.0-100.0) fL MCH 26.1 L (28.0-33.3) pg MCHC 31.7 (31.6-35.5) g/dL RDW 13.9 (11.5-14.5) % Plt Count 347 (140-400) K/mcL MPV 10.2 (9.4-12.4) fL Immature Gran % 0.3 (0-4) % Seg Neutrophils % 54.2 % Lymphocytes % 29.4 % Monocytes % 10.3 % Eosinophils % 4.8 % Basophils % 1.0 % Neutrophils # 5.0 (1.6-8.9) K/mcL Lymphocytes # 2.7 (0.6-4.6) K/mcL Monocytes # 1.0 (0.0-1.3) K/mcL Eosinophils # 0.4 (0.0-0.6) K/mcL Basophils # 0.1 (0.0-0.2) K/mcL PT 12.2 H (9.4-12.1) Seconds INR 1.1 APTT 42.9 H (26.0-36.0) Seconds Sodium 137 (136-145) mEq/L Potassium 3.6 (3.5-5.1) mEq/L Chloride 101 (98-107) mEq/L Carbon Dioxide 27 (23-29) mEq/L BUN 13 (6-20) mg/dL Creatinine 1.14 (0.70-1.30) mg/dL Est GFR ( Amer) > 60 (> 60) Est GFR (Non-Af Amer) > 60 (> 60) BUN/Creatinine Ratio 11 (6-26) Glucose 129 H (70-105) mg/dL Calculated Osmolality 286 (280-300) Lactic Acid (0.5-2.2) mmol/L Calcium 9.9 (8.6-10.3) mg/dL Magnesium 2.2 (1.6-2.6) mg/dL Troponin I < 0.03 (< 0.04) ng/mL B-Natriuretic Peptide (Less than 100) pg/mL TSH 3.178 (0.340-5.600) mcIU/mL 12/12/18 12/12/18 Range/Units 09:08 09:46 WBC (4.3-11.1) K/mcL RBC (4.19-5.50) M/mcL Hgb (12.9-16.9) g/dL Hct (37.5-50.1) % MCV (83.0-100.0) fL MCH (28.0-33.3) pg MCHC (31.6-35.5) g/dL RDW (11.5-14.5) % Plt Count (140-400) K/mcL MPV (9.4-12.4) fL Immature Gran % (0-4) % Seg Neutrophils % % Lymphocytes % % Monocytes % % Eosinophils % % Basophils % % Neutrophils # (1.6-8.9) K/mcL Lymphocytes # (0.6-4.6) K/mcL Monocytes # (0.0-1.3) K/mcL Eosinophils # (0.0-0.6) K/mcL Basophils # (0.0-0.2) K/mcL PT (9.4-12.1) Seconds INR APTT (26.0-36.0) Seconds Sodium (136-145) mEq/L Potassium (3.5-5.1) mEq/L Chloride (98-107) mEq/L Carbon Dioxide (23-29) mEq/L BUN (6-20) mg/dL Creatinine (0.70-1.30) mg/dL Est GFR ( Amer) (> 60) Est GFR (Non-Af Amer) (> 60) BUN/Creatinine Ratio (6-26) Glucose (70-105) mg/dL Calculated Osmolality (280-300) Lactic Acid 1.6 (0.5-2.2) mmol/L Calcium (8.6-10.3) mg/dL Magnesium (1.6-2.6) mg/dL Troponin I (< 0.04) ng/mL B-Natriuretic Peptide 26 (Less than 100) pg/mL TSH (0.340-5.600) mcIU/mL - Radiology Data Radiology results reviewed: Yes I reviewed the patient's radiology results. Chest X-Ray 12/12/18 09:27 IMPRESSION: No evidence of acute cardiopulmonary disease. D/ / Cricket Knox MD / Cricket Knox MD Interpreting Provider: Cricket Knox MD - EKG Data EKG #1 EKG attestation: Yes I reviewed and interpreted this EKG. EKG results narrative: EKG performed at 910 with ventricular rate of 175, appears to be regular, QRS of 109, borderline right axis deviation, no ST segment elevation or depression, no delta wave. EKG performed at 921 shows ventricular rate of 147, irregular irregular rhythm, borderline right axis deviation, continued no ST elevation or depression appears to be atrial fibrillation with RVR.
--- NOTE | 2018-12-12 09:33 | Emergency Department Note ---
Disposition Clinical Impression: Atrial fibrillation with RVR Disposition: Admitted As Inpatient Referrals: Radha Durant CNP [Primary Care Provider] - General Adult HPI - General Chief complaint: ED Arrhythmia/Palpitations Stated complaint: SVT Time Seen by Provider: 12/12/18 08:58 Source: patient Limitations: no limitations - History of Present Illness Pain Scale: 0 - Related Data Home Medications Medication Instructions Recorded Confirmed Citalopram [CeleXA] 20 mg PO HS 01/06/18 12/11/18 Dicyclomine [Bentyl] 20 mg PO BID 01/06/18 12/11/18 Famotidine [Pepcid] 20 mg PO DAILY 01/06/18 12/11/18 Fluticasone Propionate Nasal 2 spr NS DAILY PRN 01/06/18 12/11/18 [Flonase] Lisinopril-HCTZ 20-12.5 [Prinzide 1 tab PO BID 01/06/18 12/11/18 20-12.5] Meloxicam 15 mg PO DAILY 01/06/18 12/11/18 Montelukast [Singulair] 10 mg PO DAILY 01/06/18 12/11/18 Aspirin Enteric Coated [Aspirin EC] 81 mg PO DAILY 05/04/18 12/11/18 Ferrous Sulfate 325 mg PO TID 05/04/18 12/11/18 Atorvastatin Calcium [Lipitor] 20 mg PO DAILY 09/04/18 12/11/18 Metformin HCl 500 mg PO QPM 09/04/18 12/11/18 Cetirizine HCl [24Hour Allergy] 10 mg PO DAILY 12/07/18 12/11/18 Ergocalciferol (VITAMIN D2) 50,000 unit SQ WE 12/07/18 12/11/18 [Vitamin D2] Previous Rx's Medication Instructions Recorded PredniSONE [Deltasone] 20 mg PO DAILY #12 tablet 12/11/18 Allergies Allergy/AdvReac Type Severity Reaction Status Date / Time No Known Allergies Allergy Verified 12/11/18 13:33 Past Medical History - Past Medical History Medical history: Reports: arthritis, hypertension, SVT Surgical history: Reports: orthopedic, other, other Psychiatric history: Reports: depression - Social History Smoking Status: Never smoker Smokeless Tobacco Status: No Alcohol use: Reports: none Drug use: Reports: none Physical Exam - General Limitations: no limitations General appearance: alert Course Vital Signs Temperature 97.8 F 12/12/18 09:00 Pulse Rate 121 12/12/18 09:00 Respiratory Rate 24 12/12/18 09:00 Blood Pressure 98/71 12/12/18 09:00 O2 Sat by Pulse Oximetry 99 12/12/18 09:00 Temperature 97.8 F 12/12/18 09:00 Pulse Rate 140 12/12/18 09:22 Respiratory Rate 20 12/12/18 09:22 Blood Pressure 109/80 12/12/18 09:25 O2 Sat by Pulse Oximetry 99 12/12/18 09:22 Oxygen Delivery Oxygen Delivery Room Air Attestation Statement - Attestation Attestation: I examined this patient and my medical decision-making was reviewed with the Resident Physician. I agree with the documented findings, disposition and treatment plan as described except to the extent set forth below. 58 year old male presents to the ED with copmlaints of SVT and palpitations. He was most ecently admitted to the hosital on 12/08 for SVT and underlying afib rvr rhythm and it was intermittment in nature. Patinet required one dose of adenosine which did not resolve the SVT but he would converst back to NSR. Patinet here will be as tachcyardiac at 170s but will slow down to 120s and the underlying rhytm appears to be afib. Patinet on previous admission require cardizem drip and cards consulation. ECHO at that time was at baseline with good LV fuunction. WE will redose with IVF, and cardizem and hold on the adenosine at this time and then re-admitt to medicine.
[2018-12-12 09:44] LABS: Basophils # 0.1 K/mcL (0.0-0.2); Eosinophils # 0.4 K/mcL (0.0-0.6); Eosinophils % 4.8 %; Hematocrit 45.8 % (37.5-50.1); Immature Granulocytes % 0.3 % (0-4); Lymphocytes # 2.7 K/mcL (0.6-4.6); Lymphocytes % 29.4 %; Mean Corpuscular HGB Conc 31.7 g/dL (31.6-35.5); Mean Corpuscular Hemoglobin 26.1 pg (28.0-33.3); Mean Corpuscular Volume 82.4 fL (83.0-100.0); Mean Platelet Volume 10.2 fL (9.4-12.4); Monocytes % 10.3 %; Platelet Count 347 K/mcL (140-400); Red Blood Count 5.56 M/mcL (4.19-5.50); Red Cell Distribution Width 13.9 % (11.5-14.5); Segmented Neutrophils % 54.2 %
[2018-12-12 09:46] LABS: Hemoglobin 14.5 g/dL (12.9-16.9)
[2018-12-12 09:52] LABS: INR 1.1; Prothrombin Time 12.2 Seconds (9.4-12.1)
[2018-12-12 09:55] LABS: Activated Partial Thrombo Time 42.9 Seconds (26.0-36.0)
[2018-12-12 10:01] LABS: BUN/Creatinine Ratio 11 (6-26); Blood Urea Nitrogen 13 mg/dL (6-20); Calcium 9.9 mg/dL (8.6-10.3); Carbon Dioxide 27 mEq/L (23-29); Chloride 101 mEq/L (98-107); Glucose 129 mg/dL (70-105); Magnesium 2.2 mg/dL (1.6-2.6); Osmolality,Calculated 286 (280-300); Potassium 3.6 mEq/L (3.5-5.1); Sodium 137 mEq/L (136-145); Troponin I < 0.03 ng/mL (< 0.04); eGFR For Non-African Americans > 60 (> 60)
[2018-12-12 10:14] LABS: Thyroid Stimulating Hormone 3.178 mcIU/mL (0.340-5.600)
[2018-12-12] MEDS ORDERED: 0.9 % Sodium Chloride 1,000 ML IVC ONE (10:19)
[2018-12-12] MEDS ORDERED: Naloxone 0.4 MG/ML INJ IVP PRN (10:46)
[2018-12-12] MEDS ORDERED: traMADol 50 MG TABLET PO PRN (10:46)
[2018-12-12] MEDS ORDERED: D5% in Water 1,000 ML IVC PRN (10:49)
[2018-12-12] MEDS ORDERED: Dextrose Gel 15 GM/37.5 ML TUBE PO PRN ×2 (10:49)
[2018-12-12] MEDS ORDERED: *HR* Dextrose 50 % in Water (Syg) 50 ML SYRINGE IVP PRN (10:49)
[2018-12-12] MEDS ORDERED: *HR* Heparin 5,000 UNIT/ML VIAL IVP ONE (10:51)
[2018-12-12] MEDS ORDERED: *HR* Heparin 5,000 UNIT/ML VIAL IVP PRN ×2 (10:51)
--- NOTE | 2018-12-12 11:17 | Internal Med History&Physical ---
Date of Encounter: 12/12/18 Time of Encounter: 11:12 Internal Medicine - H&P: HPI Chief complaint: palpitations Admitted From: Home Plans for Post Hospital Care: Home History of present illness: Mr. Rodriguez is a 58 year old male PMH of FRANCESCA, HTN, HLD, pre-diabetes and a recent diagnosis of paroxismal a.fib. Patient reports that on ThursdayDecember 07 he came to the ED due to palpitations, shortness of breath, diaphoresis and lightheadedness. at that time the patient was found to be in A.fib with RvR, he was started on a cardizem drip and rhythm went back to sinus and he was discharged on cardizem PO. Today he comes to the ED due to similar symptoms which developed while he was in bed. He reports the only difference this time is that he was not diaphoretic, but he was feeling lightheaded, dizzy, short of breath and had palpitations. He denies chest pain and admits being compliant with his medications. In the ED patient was found to be on SVT, with HR around 160, received 10mg of cardizem. Patient found to be on A.fib with RvR. Hospitalist team called for admission and coordination of care. Past Med Surg Social Fam HX - Past Medical History Medical history: arthritis, hypertension, SVT Additional medical history: FRANCESCA, seasonal allergies, kidney stones, anemia Psychiatric history: depression - Past Surgical History Surgical History: orthopedic, other, other Additional surgical history: right shoulder replacement two months ago. multiple orthopedic surgeries - Social History Smoking Status: Never smoker Smokeless Tobacco Status: No Alcohol use: none Drug use: none - Family History Mother Hx Family Cardiac Disorders: Yes (HTN) Hx Family Endocrine Disorder: Yes (DM) Father Living Status: Hx Family Cardiac Disorders: Yes Hx Family Respiratory Disorders: Yes Hx Family Cancer: Yes Hx Family Endocrine Disorder: Yes Internal Medicine - H&P: Meds Citalopram [CeleXA] 20 mg PO HS 01/06/18 [History] Dicyclomine [Bentyl] 20 mg PO BID 01/06/18 [History] Famotidine [Pepcid] 20 mg PO DAILY 01/06/18 [History] Fluticasone Propionate Nasal [Flonase] 2 spr NS DAILY PRN 01/06/18 [History] Lisinopril-HCTZ 20-12.5 [Prinzide 20-12.5] 1 tab PO BID 01/06/18 [History] Meloxicam 15 mg PO DAILY 01/06/18 [History] Montelukast [Singulair] 10 mg PO DAILY 01/06/18 [History] Aspirin Enteric Coated [Aspirin EC] 81 mg PO DAILY 05/04/18 [History] Ferrous Sulfate 325 mg PO TID 05/04/18 [History] Atorvastatin Calcium [Lipitor] 20 mg PO DAILY 09/04/18 [History] Metformin HCl 500 mg PO QPM 09/04/18 [History] Cetirizine HCl [24Hour Allergy] 10 mg PO DAILY 12/07/18 [History] Ergocalciferol (VITAMIN D2) [Vitamin D2] 50,000 unit SQ WE 12/07/18 [History] PredniSONE [Deltasone] 20 mg PO DAILY #12 tablet 12/11/18 [Rx] Allergy/AdvReac Type Severity Reaction Status Date / Time No Known Allergies Allergy Verified 12/11/18 13:33 All Systems PM: A 10-system review of systems was performed and is negative for pertinent findings except as documented above in the HPI. - Constitutional Constitutional: no chills, no fever(s), no lethargy, no weakness - EENT Eyes: no change in vision, no irritation Nose, mouth and throat: no nasal congestion - Cardiovascular Cardiovascular ROS IM: dyspnea, irregular heart rhythm, lightheadedness, palpitations, no chest pain, no diaphoresis, no dyspnea on exertion, no edema, no paroxysmal nocturnal dyspnea - Respiratory Respiratory: no cough, no chest congestion - Gastrointestinal Gastrointestinal: no abdominal pain, no dyspepsia, no heartburn, no loose stools, no melena, no nausea, no vomiting - Genitourinary Genitourinary ROS male: no nocturia, no urinary frequency, no urinary hesitancy, no urinary incontinence, no urinary urgency - Musculoskeletal Musculoskeletal ROS IM: no atrophy - Integumentary Integumentary IM: no skin ulcer, no sores - Neurological Neurological ROS: no dizziness, no loss of vision - Psychiatric Psychiatric: no anxiety, no irritability - Endocrine Endocrine IM: no cold intolerance, no heat intolerance - Hematologic/Lymphatic Hematologic/Lymphatic: no lymphadenopathy - Allergic/Immunologic Allergic/Immunologic: no GI upset with certain foods - Constitutional Vitals: Temp Pulse Resp BP Pulse Ox 97.8 F 130 24 116/69 95 12/12/18 09:00 12/12/18 10:44 12/12/18 10:44 12/12/18 10:44 12/12/18 10:44 Exam: Vitals: Reviewed. General: Alert and oriented x4. In mild distress due to palpitations. Skin: Normal color, no rash, no lesions. HEENT: EOM, pupils equal, round and reactive. Cardiovascular: Irregularly, irregular, normal S1 & S2, no rubs, murmurs or gallops. Lungs: CTA b/l, no wheezes or crackles. Abdomen: Obese, soft, non-tender, no rigidity. Extremities: No deformity, no edema or tenderness, no joint swelling or clubbing. Neurological: Normal cognition and motor skills. Rest of the physical exam is non contributory Internal Med - H&P Results - Labs CBC & Chem 7: 12/12/18 09:08 12/12/18 09:08 Labs: Short CBC 12/12/18 Range/Units 09:08 WBC 9.2 D (4.3-11.1) K/mcL Hgb 14.5 D (12.9-16.9) g/dL Hct 45.8 (37.5-50.1) % Plt Count 347 (140-400) K/mcL Neutrophils # 5.0 (1.6-8.9) K/mcL BMP 12/12/18 09:08 Sodium 137 Potassium 3.6 Chloride 101 Carbon Dioxide 27 BUN 13 Creatinine 1.14 Glucose 129 H Calcium 9.9 Cardiac Enzymes 12/12/18 Range/Units 09:08 Troponin I < 0.03 (< 0.04) ng/mL - Impressions ITS Impressions Chest X-Ray 12/12/18 09:27 IMPRESSION: No evidence of acute cardiopulmonary disease. D/ / Cricket Knox MD / Cricket Knox MD Interpreting Provider: Cricket Knox MD - Diagnostic Studies Chest x-ray Status: image reviewed by me (No acute abnormalities ) - Assessment and plan (1) Atrial fibrillation with RVR Current Visit: Yes Status: Acute Assessment and plan: patient presenting again with palpitations and shortness of breath. Plan telemetry monitoring heparin drip, chadsvasc score of 2 cardiology consulted started on Gentle IV hydration BP running in the low 100s following cardizem administration cardizem drip titrate per protocol resume oral cardizem when BP tolerates it. serial trops (2) DVT prophylaxis Current Visit: No Status: Acute Assessment and plan: patient on a heparin drip due to A.fib with RvR. (3) Hyperlipidemia Current Visit: No Status: Chronic Assessment and plan: Continue atorvastatin 20 mg by mouth at bedtime. Qualifiers: Hyperlipidemia type: unspecified Qualified Code(s): E78.5 - Hyperlipidemia, unspecified (4) Hypertension Current Visit: No Status: Chronic Assessment and plan: Hold home antihypertensive medications. patient is on a cardizem drip. Qualifiers: Hypertension type: essential hypertension Qualified Code(s): I10 - Essential (primary) hypertension (5) FRANCESCA (obstructive sleep apnea) Current Visit: No Status: Chronic Assessment and plan: Nocturnal CPap (6) Obesity (BMI 30.0-34.9) Current Visit: No Status: Chronic (7) Type 2 diabetes mellitus Current Visit: No Status: Resolved Assessment and plan: last a1c of 5.6. carbs controlled diet. lispro low dose ac sliding scale. 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
[2018-12-12 11:57] LABS: Phosphorous 2.7 mg/dL (2.7-4.5)
[2018-12-12] MEDS: Insulin LISPRO 300 UNITS/3 ML VIAL SQ SCH ×2 (12:34→17:22)
[2018-12-12] MEDS: 0.9 % Sodium Chloride 1,000 ML IVC SCH (12:39)
[2018-12-12] MEDS: Heparin 25,000 UNIT/500 ML D5W 25,000 UNIT/500 ML BAG IVC SCH (12:42)
[2018-12-13] MEDS: 0.9 % Sodium Chloride 1,000 ML IVC SCH (02:38)
[2018-12-13] MEDS: Heparin 25,000 UNIT/500 ML D5W 25,000 UNIT/500 ML BAG IVC SCH (02:42)
[2018-12-13 03:05] LABS: Hematocrit 38.7 % (37.5-50.1); Hemoglobin 12.3 g/dL (12.9-16.9); Immature Platelets 2.7 % (1.1-6.1); Mean Corpuscular HGB Conc 31.8 g/dL (31.6-35.5); Mean Corpuscular Hemoglobin 26.1 pg (28.0-33.3); Mean Corpuscular Volume 82.2 fL (83.0-100.0); Red Blood Count 4.71 M/mcL (4.19-5.50); Red Cell Distribution Width 13.9 % (11.5-14.5)
[2018-12-13 03:23] LABS: BUN/Creatinine Ratio 14 (6-26); Blood Urea Nitrogen 12 mg/dL (6-20); Calcium 8.9 mg/dL (8.6-10.3); Carbon Dioxide 23 mEq/L (23-29); Chloride 107 mEq/L (98-107); Glucose 115 mg/dL (70-105); Osmolality,Calculated 287 (280-300); Potassium 3.8 mEq/L (3.5-5.1); Sodium 138 mEq/L (136-145); eGFR For Non-African Americans > 60 (> 60)
[2018-12-13] MEDS: Insulin LISPRO 300 UNITS/3 ML VIAL SQ SCH ×2 (07:53→13:26)
[2018-12-13 07:54] VITALS: BP 114/75
--- NOTE | 2018-12-13 08:33 | Cardiology Consult Note ---
Addendum entered and electronically signed by Sharad Bhatti MD 12/13/18 12:45: I examined this patient and my medical decision-making was reviewed with the COMPUTER CLERK. I agree with the documented findings, disposition and treatment plan as described except to the extent set forth below. A/P: AF RVR SVT HTN Dyslipidemia FRANCESCA on CPAP Rate control. NOAC A/R/B explained to him. [facility] clinic. Thank you for the consultation and allowing me to participate in your patient's care. Sharad Bhatti MD [facility] Original Note: Date of Encounter: 12/13/18 Time of Encounter: 08:25 Assessment and Plan (1) Atrial fibrillation with RVR Current Visit: Yes Status: Acute Per Cardiology: Troponins negative 4. BNP stable, TSH and magnesium stable. Negative nuclear stress test in 2018. Telemetry reviewed with average heart rate the past 12 hours 80, A. fib with longest is 2.1 seconds. Now noted to be sinus rhythm in the 80s. On IV Cardizem drip at 5mg per hour, will wean to off. Will increase Cardizem CD from 120 g by mouth daily up to 180 mg by mouth daily. ECHO 11/2018: Impressions: LVEF 65%. Normal LV chamber size, wall thickness and systolic function. Mild left ventricular diastolic dysfunction. Mildly dilated left atrium. Normal right ventricular structure and function. No significant valvular dysfunction. No pulmonary hypertension. Mild aortic root dilatation. Left Ventricular Wall Motion: Rest Echo Findings All wall segments showed normal motion. Regarding long-term anticoagulation, [id number] = 2 (HTN, DM2). I had lengthy discussion with patient on AC. He prefers DOAC, ellis check for Xarelto 20mg PO daily = $3.80/month. Will dc asa and IV Hep. gtt. 1st dose now. Cardiology signing off, re-consult PRN, has f/u. Discussion w patient/family: The assessment and plan as outlined above was discussed with the patient and/or family members who expressed understanding and agreement. All questions were answered. Thank you for involving us in the care of your patient. Please call with any questions. History of Present Illness Consult date: 12/13/18 Requesting physician: Rodolfo Horne Consult reason: Afib Chief complaint: Palps, Dizzy, SOB History of present illness: Mr. Rodriguez is a 58 year old male PMH of FRANCESCA, HTN, HLD, pre-diabetes and a recent diagnosis of SVT. Patient reports that on ThursdayDecember 07 he came to the ED due to palpitations, shortness of breath, diaphoresis and lightheadedness. at that time the patient was found to be in A.fib with RvR, he was started on a cardizem drip and rhythm went back to sinus and he was discharged on cardizem PO. Cardiology consult for A. fib. Patient reports compliance with Cardizem CD 120 mg by mouth daily since discharge and on baby aspirin. He reports no infectious process recently. He reports went to bed Thursday night and woke up on palpitations with shortness of breath and dizziness. Symptoms currently resolved. He reports has FRANCESCA and was utilizing his CPAP machine. Denies any active bleeding or blood loss. Denies any falls. Denies any chest pain. Past Med Surg Social Fam HX - Past Medical History Attestation: Yes The following information was validated with the patient. Source: patient, old records reviewed Medical history: arthritis, hypertension, SVT Additional medical history: FRANCESCA, seasonal allergies, kidney stones, anemia Psychiatric history: depression - Past Surgical History Surgical History: orthopedic, other, other Additional surgical history: right shoulder replacement two months ago. multiple orthopedic surgeries - Social History Smoking Status: Never smoker Smokeless Tobacco Status: No Alcohol use: none Drug use: none - Family History Mother Hx Family Cardiac Disorders: Yes (HTN) Hx Family Endocrine Disorder: Yes (DM) Father Living Status: Hx Family Cardiac Disorders: Yes Hx Family Respiratory Disorders: Yes Hx Family Cancer: Yes Hx Family Endocrine Disorder: Yes Medications and Allergies Citalopram [CeleXA] 20 mg PO HS 01/06/18 [History] Dicyclomine [Bentyl] 20 mg PO BID 01/06/18 [History] Famotidine [Pepcid] 20 mg PO DAILY 01/06/18 [History] Fluticasone Propionate Nasal [Flonase] 2 spr NS DAILY PRN 01/06/18 [History] Lisinopril-HCTZ 20-12.5 [Prinzide 20-12.5] 1 tab PO BID 01/06/18 [History] Meloxicam 15 mg PO DAILY 01/06/18 [History] Montelukast [Singulair] 10 mg PO DAILY 01/06/18 [History] Aspirin Enteric Coated [Aspirin EC] 81 mg PO DAILY 05/04/18 [History] Ferrous Sulfate 325 mg PO TID 05/04/18 [History] Atorvastatin Calcium [Lipitor] 20 mg PO DAILY 09/04/18 [History] Metformin HCl 500 mg PO QPM 09/04/18 [History] Cetirizine HCl [24Hour Allergy] 10 mg PO DAILY 12/07/18 [History] Ergocalciferol (VITAMIN D2) [Vitamin D2] 50,000 unit SQ WE 12/07/18 [History] PredniSONE [Deltasone] 20 mg PO DAILY #12 tablet 12/11/18 [Rx] Allergy/AdvReac Type Severity Reaction Status Date / Time No Known Allergies Allergy Verified 12/11/18 13:33 All Systems Review: The remainder of the systems were reviewed and are negative - Cardiovascular Cardiovascular: as per HPI, diaphoresis, lightheadedness, palpitations Physical Examination Vital Signs, Last 4 Hours Pulse Resp BP Pulse Ox 12/13/18 07:52 80 15 114/75 93 General: Conversant, No Apparent Distress HEENT: Atraumatic, Normocephaly, Mucus Membranes Moist Neck: No JVD, Normal carotid pulses Cardiac: Reg Rate and Rhythm, Normal S1 and S2, No Murmur Lungs: Normal Breath Sounds, No Wheeze, Rales, Rhonchi Neuro: Alert and responsive, No focal deficits noted Abdomen: Soft, Non-Tender Skin: No rashes noted on visualized skin Musculoskeletal: No Chest Wall Tenderness Extremities: No Clubbing, No Cyanosis, No Edema, Normal Pulses Results 12/13/18 02:47 12/13/18 02:47 Lab Results Laboratory Tests 12/12/18 12/12/18 12/12/18 09:08 09:08 09:08 Hgb Hct Plt Count INR 1.1 Creatinine Est GFR (Non-Af Amer) Magnesium 2.2 Troponin I < 0.03 B-Natriuretic Peptide 26 TSH 3.178 12/12/18 12/12/18 12/13/18 14:58 20:32 02:47 Hgb Hct Plt Count INR Creatinine Est GFR (Non-Af Amer) Magnesium Troponin I < 0.03 < 0.03 < 0.03 B-Natriuretic Peptide TSH 12/13/18 12/13/18 02:47 02:47 Hgb 12.3 L D Hct 38.7 Plt Count 234 INR Creatinine 0.88 Est GFR (Non-Af Amer) > 60 Magnesium Troponin I B-Natriuretic Peptide TSH ITS Impressions Chest X-Ray 12/12/18 09:27 IMPRESSION: No evidence of acute cardiopulmonary disease. D/ / Cricket Knox MD / Cricket Knox MD Interpreting Provider: Cricket Knox MD Active Medications Aspirin (Aspirin Ec) 81 mg PO DAILY GREGORIO Stop: 06/14/19 09:01 Atorvastatin Calcium (Lipitor) 20 mg PO HS GREGORIO Stop: 06/13/19 21:01 Last Admin: 12/12/18 20:33 Dose: 20 mg Citalopram Hydrobromide (Celexa) 20 mg PO HS GREGORIO Stop: 06/14/19 21:01 Dextrose/Water (Dextrose 50% (Syg)) 25 ml IVP AD PRN PRN Reason: Hypoglycemia Stop: 06/13/19 10:50 Glucagon (Glucagen) 1 mg IM ONCE PRN PRN Reason: Hypoglycemia Stop: 06/13/19 10:50 Glucose (Gluctose) 15 gm PO ONCE PRN PRN Reason: Hypoglycemia Stop: 06/13/19 10:50 Glucose (Gluctose) 30 gm PO ONCE PRN PRN Reason: Hypoglycemia Stop: 06/13/19 10:50 Sodium Chloride (0.9 % Sodium Chloride) 1,000 mls @ 75 mls/hr IVC .[id number] GREGORIO Stop: 06/13/19 11:01 Last Admin: 12/13/18 02:38 Dose: 75 mls/hr Dextrose (Dextrose 5%) 1,000 mls @ 100 mls/hr IVC .Q10H PRN PRN Reason: HYPOGLYCEMIA Stop: 06/13/19 10:50 Insulin Human Lispro (Humalog) 0 units SQ TIDAC [facility]; Protocol Stop: 06/13/19 11:31 Last Admin: 12/13/18 07:53 Dose: Not Given Metformin HCl (Glucophage) 500 mg PO QPM [facility]; Protocol Stop: 06/14/19 18:01 Naloxone HCl (Narcan) 0.4 mg IVP Q2MIN PRN PRN Reason: SEE COMMENTS Stop: 06/13/19 10:47 Tramadol HCl (Ultram) 50 mg PO Q6HR PRN PRN Reason: Moderate Pain Stop: 06/13/19 10:47 - Imaging and Cardiology Echo: report reviewed - EKG Interpretation EKG results cardiology: personally reviewed Consult Discharge Plan - Plan Referrals: Radha Durant, COMPUTER CLERK [Primary Care Provider] -
[2018-12-13] MEDS ORDERED: Aspirin Enteric Coated 81 MG Tablet PO SCH (09:00)
[2018-12-13] MEDS ORDERED: NON-FORMULARY MEDICATION 1 EACH EACH (Atorvastatin Calcium [Lipitor] 20 MG) PO SCH (09:00)
[2018-12-13] MEDS ORDERED: Diltiazem CD (24hr) 180 MG CAPSULE PO SCH (10:30)
--- NOTE | 2018-12-13 11:49 | Discharge Summary ---
- NOTES TO OUTPATIENT PROVIDER Notes to Outpatient Provider: A-Fib RVR newly on Xarelto, increased Cardizem to 180 Orders not resulted at time of discharge: Pending orders 12/14/18 01:10 Heparin anti-factor XA UFH [COAG] Timed Date of Encounter: 12/13/18 Time of Encounter: 11:46 - Discharge Diagnosis (1) Atrial fibrillation with RVR Priority: Primary Status: Acute Hospital course: Dear Doctors, I recently had the opportunity to care for this patient during their hospital stay at [facility]. Mr. Rodriguez is a 58 year old male w recent first episode A-Fib RVR hospitalized here who p/w tachycardia and lightheadedness. In the ED, found to be in A-Fib RVR. Started on cardizem gtt and admitted. In the hospital, pt converted to NSR and maintained rate in 70-80s. Hep gtt was converted to Xarelto. TTE unremarkable. TSH and lytes normal. Trops and ECG without evidence for ischemia. Recent stress test mid 2017 unremarkable. Diagnoses: A-Fib RVR Follow up: PCP 1 week Pertinent tests/consults: Cardiology consultation, TTE unremarkable Med changes: - new Xarelto 20 daily - increase Cardizem from 120 to 180 daily Mental status: awake, fully oriented Code status: resident care associate spent on discharge: 35 minutes It has been my pleasure participating in this patient's care. Please contact me with any questions or concerns regarding their hospital stay. Sincerely, Yossi Barnes MD - Time Spent with Patient Total time spent providing and/or coordinating discharge services: Greater than 30 minutes - Discharge Medications Prescriptions: Diltiazem CD (24hr) [Cardizem CD] 180 mg PO DAILY #30 cap.er.24h Rivaroxaban [Xarelto] 20 mg PO DAILY #30 tablet Home Medications: Citalopram [CeleXA] 20 mg PO HS 01/06/18 [History] Dicyclomine [Bentyl] 20 mg PO BID 01/06/18 [History] Famotidine [Pepcid] 20 mg PO DAILY 01/06/18 [History] Fluticasone Propionate Nasal [Flonase] 2 spr NS DAILY PRN 01/06/18 [History] Meloxicam 15 mg PO DAILY 01/06/18 [History] Montelukast [Singulair] 10 mg PO DAILY 01/06/18 [History] Aspirin Enteric Coated [Aspirin EC] 81 mg PO DAILY 05/04/18 [History] Ferrous Sulfate 325 mg PO TID 05/04/18 [History] Atorvastatin Calcium [Lipitor] 20 mg PO DAILY 09/04/18 [History] Metformin HCl 500 mg PO QPM 09/04/18 [History] Cetirizine HCl [24Hour Allergy] 10 mg PO DAILY 12/07/18 [History] Ergocalciferol (VITAMIN D2) [Vitamin D2] 50,000 unit SQ WE 12/07/18 [History] Diltiazem CD (24hr) [Cardizem CD] 180 mg PO DAILY #30 cap.er.24h 12/13/18 [Rx] Lisinopril-HCTZ 20-12.5 [Prinzide 20-12.5] 1 tab PO DAILY #0 12/13/18 [Rx] Rivaroxaban [Xarelto] 20 mg PO DAILY #30 tablet 12/13/18 [Rx] Allergies/Adverse Reactions: Allergy/AdvReac Type Severity Reaction Status Date / Time No Known Allergies Allergy Verified 12/11/18 13:33 Date of admission: 12/12/18 11:13 Primary care physician: Radha Durant CNP Consults: 12/12/18 10:50 Consult to Cardiology [CONS] Routine Comment: Consulting Provider: Cardiology [address] Reason for Consult: A. fib with rvr Call Completed: No - Constitutional Vitals: Temp Pulse Resp BP Pulse Ox 97.9 F 80 15 114/75 93 12/13/18 04:12 12/13/18 07:52 12/13/18 07:52 12/13/18 07:52 12/13/18 07:52 Exam: General: NAD, AAOx3, good eye contact, well appearing Thoracic: Normal breath sounds b/l, no wheezing or crackles Cardio: Normal S1 and S2, regular rate and rhythm, no murmurs Abdomen: Soft, nontender, nondistended. Extremities: Warm, well perfused. DP pulses 2+ b/l. No edema. Skin: Intact. No rashes, bruises, or ulcers Neuro: Awake, fully oriented. Speech fluent - Patient Status Disposition: Home, Self-Care Condition: Fair Functional capacity at discharge: independent ambulation Overall status at discharge: patient is back to baseline - Discharge Instructions Follow Up With: Radha Durant CNP [Primary Care Provider] - 12/15/18 10:30 am Rk Baptiste DO [Partnered Physician] - 01/03/19 10:00 am - Diet and Activity Activity: increase activity as tolerated Diet: advance to your usual diet
[2018-12-13] MEDS ORDERED: *HR* Rivaroxaban 10 MG TABLET PO SCH (13:00)
[2018-12-13] MEDS ORDERED: *HR* Metformin 500 MG TABLET PO SCH (18:00)
--- NOTE | 2018-12-14 16:53 | Electrocardiograph Report ---
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
--- NOTE | 2018-12-14 17:00 | Electrocardiograph Report ---
[address] [place], [place] [address] Test Date: 2018-12-12 Pat Name: Tomy Rodriguez Department: [id number] Room: 2NE24 Gender: M Atg Architect: : 1960 Requested By: Idalia Moon Order Number: [id number] Reading MD: Shahid Sibley Measurements Intervals [place] Rate: 147 P: NV: QRS: 113 QRSD: 106 T: 21 QT: 300 QTc: 470 Interpretive Statements Atrial fibrillation with rapid ventricular response Incomplete right bundle branch block Right axis deviation Electronically Signed On 12-14-2018 16:58:15 EST by Shahid Sibley
== END 2018-12-13 14:55 | disposition home or self-care (01) ==
LOC: 2NENU 08:56 → EMEROOARM 08:56 → SUATTDRO 11:13 → 2NENU 11:29
PROVIDERS: ADMIT Internal Medicine; ATTEND Internal Medicine

== ENCOUNTER 2019-01-07 16:53 | Observation (INO) ==
--- NOTE | 2019-01-07 17:50 | Emergency Department Note ---
Disposition Clinical Impression: Palpitations, Near syncope Disposition: Admitted As Inpatient Condition: Fair Time of Disposition: 19:26 General Adult HPI - General Chief complaint: ED Chest Pain Stated complaint: CP Time Seen by Provider: 01/07/19 17:28 Source: patient Limitations: no limitations Nursing Notes Reviewed: Yes Vital Signs Reviewed: Yes - History of Present Illness HPI Narrative: 58-year-old male presents from home for evaluation of palpitations. Onset 3 hours prior to arrival. Palpitations typically last 10-20 seconds however, he had one episode lasting approximately 45 minutes. This occurred while he was driving and he was concerned that he may have a single episode while driving. He did not have a single episode with today's symptoms at any time. Patient has associated lightheadedness and was of breath with this palpitations. No chest pain. PMH: Palpitations with multiple PVCs on diltiazem 180mg. ROS: Positive: As above Negative: Fever, chills, nausea, vomiting, chest pains, unusual back pain, trauma, missed medications or new medications Pain Scale: 1 - Related Data Home Medications Medication Instructions Recorded Confirmed Citalopram [CeleXA] 20 mg PO HS 01/06/18 12/11/18 Dicyclomine [Bentyl] 20 mg PO BID 01/06/18 12/11/18 Famotidine [Pepcid] 20 mg PO DAILY 01/06/18 12/11/18 Fluticasone Propionate Nasal 2 spr NS DAILY PRN 01/06/18 12/11/18 [Flonase] Meloxicam 15 mg PO DAILY 01/06/18 12/11/18 Montelukast [Singulair] 10 mg PO DAILY 01/06/18 12/11/18 Aspirin Enteric Coated [Aspirin EC] 81 mg PO DAILY 05/04/18 12/11/18 Ferrous Sulfate 325 mg PO TID 05/04/18 12/11/18 Atorvastatin Calcium [Lipitor] 20 mg PO DAILY 09/04/18 12/11/18 Metformin HCl 500 mg PO QPM 09/04/18 12/11/18 Cetirizine HCl [24Hour Allergy] 10 mg PO DAILY 12/07/18 12/11/18 Ergocalciferol (VITAMIN D2) 50,000 unit SQ WE 12/07/18 12/11/18 [Vitamin D2] Previous Rx's Medication Instructions Recorded Diltiazem CD (24hr) [Cardizem CD] 180 mg PO DAILY #30 cap.er.24h 12/13/18 Lisinopril-HCTZ 20-12.5 [Prinzide 1 tab PO DAILY #0 12/13/18 20-12.5] Rivaroxaban [Xarelto] 20 mg PO DAILY #30 tablet 12/13/18 Allergies Allergy/AdvReac Type Severity Reaction Status Date / Time No Known Allergies Allergy Verified 12/26/18 18:50 All systems ED: reviewed and negative except as stated. Review of Systems: As Per HPI Past Medical History - Past Medical History Medical history: Reports: atrial fibrillation, hyperlipidemia, hypertension, SVT, other Surgical history: Reports: orthopedic, other, other Psychiatric history: Reports: depression - Social History Smoking Status: Never smoker Smokeless Tobacco Status: No Alcohol use: Reports: none Drug use: Reports: none Physical Exam Vital Signs Reviewed General: Patient is alert, oriented, and in no acute distress. Head: atraumatic, normocephalic Eye: normal appearance, PERRL, EOMI, no scleral icterus, no conjunctival injection ENT: mucous membranes moist, normal external ear exam Neck: normal inspection, trachea midline, full ROM Chest: normal inspection, symmetric chest rise Respiratory: Good respiratory effort. Bilateral breath sounds are clear without wheezing, crackles, or rhonchi. Cardiovascular: Regular rate and rhythm. No clicks, rubs, gallops, or murmors. Normal heart sounds. Abdomen: Bowel sounds present normoactive. Abdomen is soft, nondistended, and nontender. No guarding or rebound. No organomegaly noted. Musculoskeletal: Spontaneously moving all extremities. Skin: warm, dry, intact. Neuro: GCS 15. No focal neurologic deficits observed. Psych: Patient's affect is appropriate for situation. - General Limitations: no limitations General appearance: alert, in no apparent distress Course Course Narrative: Cardiac echo 12/08/18 EV/EV echocardiogram Impressions: LVEF 65%. Normal LV chamber size, wall thickness and systolic function. Mild left ventricular diastolic dysfunction. Mildly dilated left atrium. Normal right ventricular structure and function. No significant valvular dysfunction. No pulmonary hypertension. Mild aortic root dilatation. Left Ventricular Wall Motion: Rest Echo Findings All wall segments showed normal motion. Holter monitor in the last month shows multiple PVCs, PACs, bigeminy, trigeminy. Concern as patient had near syncope and he had a duration of 45 minutes of symptomatic palpitations. My attending discussed the patient with cardiac surgeon cardiology, Dr. Bhatti. Recommendation is admission for continued evaluation. I discussed the above the patient and his bedside. They are agreeable to this plan of care. I discussed the above the [facility] hospitals, Dr. Carlson. He agrees to accept the patient with cardiology consultation. No additional recommendations at this time. Vital Signs Temperature 97.7 F 01/07/19 16:54 Pulse Rate 71 01/07/19 16:54 Respiratory Rate 18 01/07/19 16:54 Blood Pressure 148/78 01/07/19 16:54 O2 Sat by Pulse Oximetry 100 01/07/19 16:54 Temperature 97.7 F 01/07/19 16:54 Pulse Rate 74 01/07/19 18:38 Respiratory Rate 18 01/07/19 18:38 Blood Pressure 114/78 01/07/19 18:38 O2 Sat by Pulse Oximetry 95 01/07/19 18:38 Oxygen Delivery Oxygen Delivery Room Air Medical Decision Making - Lab Data Result diagrams: 01/07/19 17:24 01/07/19 17:24 Lab Results 01/07/19 01/07/19 01/07/19 Range/Units 17:24 17:24 17:24 WBC 6.0 (4.3-11.1) K/mcL RBC 5.03 (4.19-5.50) M/mcL Hgb 13.1 (12.9-16.9) g/dL Hct 39.8 (37.5-50.1) % MCV 79.1 L (83.0-100.0) fL MCH 26.0 L (28.0-33.3) pg MCHC 32.9 (31.6-35.5) g/dL RDW 14.2 (11.5-14.5) % Plt Count 291 (140-400) K/mcL MPV 9.8 (9.4-12.4) fL Immature Gran % 0.3 (0-4) % Seg Neutrophils % 54.9 % Lymphocytes % 29.3 % Monocytes % 11.0 % Eosinophils % 3.5 % Basophils % 1.0 % Neutrophils # 3.3 (1.6-8.9) K/mcL Lymphocytes # 1.8 (0.6-4.6) K/mcL Monocytes # 0.7 (0.0-1.3) K/mcL Eosinophils # 0.2 (0.0-0.6) K/mcL Basophils # 0.1 (0.0-0.2) K/mcL PT 13.6 H (9.4-12.1) Seconds INR 1.2 APTT 44.7 H (26.0-36.0) Seconds Sodium 138 (136-145) mEq/L Potassium 3.6 (3.5-5.1) mEq/L Chloride 102 (98-107) mEq/L Carbon Dioxide 24 (23-29) mEq/L BUN 18 (6-20) mg/dL Creatinine 0.82 (0.70-1.30) mg/dL Est GFR ( Amer) > 60 (> 60) Est GFR (Non-Af Amer) > 60 (> 60) BUN/Creatinine Ratio 22 (6-26) Glucose 93 (70-105) mg/dL Calculated Osmolality 288 (280-300) Calcium 9.8 (8.6-10.3) mg/dL Troponin I < 0.03 (< 0.04) ng/mL Attestation Statement - Attestation Attestation: I, Ted Key, examined this patient and my medical decision-making was reviewed with the HAIR TINTER/PA/Advanced Practice Nurse/Resident Physician. I agree with the documented findings, disposition and treatment plan as described except to the extent set forth below. 38-year-old male presents emergency Department with concerns of palpitations. Patient states he was admitted to the hospital for similar symptoms one month ago, he had a Holter monitor which showed multiple PVCs and he has a history of A. fib with RVR. Patient states he was sitting in his car and became very lightheaded with palpitations. Patient denies fever, chills, nausea, vomiting, diarrhea. Spoke with the director recreation who recommended admission to the hospital for further care and evaluation. Patient will be admitted to the hospitalist.
[2019-01-07 17:59] LABS: Basophils # 0.1 K/mcL (0.0-0.2); Eosinophils # 0.2 K/mcL (0.0-0.6); Eosinophils % 3.5 %; Hematocrit 39.8 % (37.5-50.1); Hemoglobin 13.1 g/dL (12.9-16.9); Immature Granulocytes % 0.3 % (0-4); Lymphocytes # 1.8 K/mcL (0.6-4.6); Lymphocytes % 29.3 %; Mean Corpuscular HGB Conc 32.9 g/dL (31.6-35.5); Mean Corpuscular Volume 79.1 fL (83.0-100.0); Mean Platelet Volume 9.8 fL (9.4-12.4); Monocytes # 0.7 K/mcL (0.0-1.3); Neutrophils # 3.3 K/mcL (1.6-8.9); Platelet Count 291 K/mcL (140-400); Red Blood Count 5.03 M/mcL (4.19-5.50); Red Cell Distribution Width 14.2 % (11.5-14.5); Segmented Neutrophils % 54.9 %
[2019-01-07 18:07] LABS: INR 1.2; Prothrombin Time 13.6 Seconds (9.4-12.1)
[2019-01-07 18:10] LABS: Activated Partial Thrombo Time 44.7 Seconds (26.0-36.0)
[2019-01-07 18:14] LABS: BUN/Creatinine Ratio 22 (6-26); Blood Urea Nitrogen 18 mg/dL (6-20); Calcium 9.8 mg/dL (8.6-10.3); Carbon Dioxide 24 mEq/L (23-29); Chloride 102 mEq/L (98-107); Glucose 93 mg/dL (70-105); Osmolality,Calculated 288 (280-300); Potassium 3.6 mEq/L (3.5-5.1); Sodium 138 mEq/L (136-145); eGFR For Non-African Americans > 60 (> 60)
[2019-01-07 18:15] LABS: Troponin I < 0.03 ng/mL (< 0.04)
[2019-01-07] MEDS ORDERED: Naloxone 0.4 MG/ML INJ IVP PRN (20:26)
--- NOTE | 2019-01-07 20:37 | Internal Med History&Physical ---
<Luz MariaSterlingJosue W - Last Filed: 01/07/19 21:36> Date of Encounter: 01/07/19 Time of Encounter: 20:32 Internal Medicine - H&P: HPI Chief complaint: Palpitations Admitted From: Home History of present illness: Mr. Rodriguez is a 58 year old male past medical history of hypertension, A. fib, supraventricular tachycardia, palpitations presents to the ED with recurrent palpitations and near syncope. Patient states this afternoon when he sitting in his car waiting to machine operator picker his grandkids from the bus stop he had a 45 minute episodes of his "heart racing". Patient states he has had these episodes since December 07. He was noted to have SVT, A. fib, PVC. Patient was placed on xeralto and Cardizem. Patient has had these palpitations since this time. However, they usually only last seconds 1-2 minutes at most. And they do not ma ke him feel like he is going to pass out. Patient states he felt lightheaded. He called his son to have him come machine operator picker his kids as he did not feel like driving would be safe. Patient states he felt some associated shortness of breath during this time. He also states he had a chest "squeeze" that went below his breasts into his left shoulder. Patient states he also had a associated mild headache and some tingling in his fingers that went away quickly. Patient denies any vision changes, fevers, chills, weakness, confusion, nausea, vomiting, diarrhea, constipation, abdominal pain, difficulty urinating, swelling, rash. Past Med Surg Social Fam HX - Past Medical History Medical history: atrial fibrillation, hyperlipidemia, hypertension, SVT, other Additional medical history: FRANCESCA, seasonal allergies, kidney stones, anemia Psychiatric history: depression - Past Surgical History Surgical History: orthopedic, other, other Additional surgical history: right shoulder replacement two months ago. multiple orthopedic surgeries - Social History Smoking Status: Never smoker Smokeless Tobacco Status: No Alcohol use: none Drug use: none - Family History Mother Hx Family Cardiac Disorders: Yes (HTN) Hx Family Endocrine Disorder: Yes (DM) Father Living Status: Hx Family Cardiac Disorders: Yes Hx Family Respiratory Disorders: Yes Hx Family Cancer: Yes Hx Family Endocrine Disorder: Yes Internal Medicine - H&P: Meds Citalopram [CeleXA] 20 mg PO HS 01/06/18 [History] Dicyclomine [Bentyl] 20 mg PO BID 01/06/18 [History] Famotidine [Pepcid] 20 mg PO DAILY 01/06/18 [History] Fluticasone Propionate Nasal [Flonase] 2 spr NS DAILY PRN 01/06/18 [History] Meloxicam 15 mg PO DAILY 01/06/18 [History] Montelukast [Singulair] 10 mg PO DAILY 01/06/18 [History] Aspirin Enteric Coated [Aspirin EC] 81 mg PO DAILY 05/04/18 [History] Ferrous Sulfate 325 mg PO TID 05/04/18 [History] Atorvastatin Calcium [Lipitor] 20 mg PO DAILY 09/04/18 [History] Metformin HCl 500 mg PO QPM 09/04/18 [History] Cetirizine HCl [24Hour Allergy] 10 mg PO DAILY 12/07/18 [History] Ergocalciferol (VITAMIN D2) [Vitamin D2] 50,000 unit SQ WE 12/07/18 [History] Diltiazem CD (24hr) [Cardizem CD] 180 mg PO DAILY #30 cap.er.24h 12/13/18 [Rx] Lisinopril-HCTZ 20-12.5 [Prinzide 20-12.5] 1 tab PO DAILY #0 12/13/18 [Rx] Rivaroxaban [Xarelto] 20 mg PO HS 01/07/19 [History] Allergy/AdvReac Type Severity Reaction Status Date / Time No Known Allergies Allergy Verified 12/26/18 18:50 All Systems PM: A 10-system review of systems was performed and is negative for pertinent findings except as documented above in the HPI. - Constitutional Constitutional: as per HPI - EENT Eyes: as per HPI - Cardiovascular Cardiovascular ROS IM: as per HPI - Respiratory Respiratory: as per HPI - Gastrointestinal Gastrointestinal: as per HPI - Genitourinary Genitourinary ROS male: as per HPI - Musculoskeletal Musculoskeletal ROS IM: as per HPI - Integumentary Integumentary IM: as per HPI - Neurological Neurological ROS: as per HPI - Psychiatric Psychiatric: as per HPI - Endocrine Endocrine IM: as per HPI - Allergic/Immunologic Allergic/Immunologic: as per HPI - Constitutional Vitals: Temp Pulse Resp BP Pulse Ox 98.1 F 66 16 121/77 97 01/07/19 20:03 01/07/19 20:03 01/07/19 20:03 01/07/19 20:03 01/07/19 20:03 General appearance: Present: A&O X 3 Exam: Patient sitting up in bed he is pleasant and conversational. - Head Head exam: Present: atraumatic, normocephalic - Eye Eye exam: Present: PERRL, conjuntiva pink, sclera anicteric Pupils: Present: PERRL - Respiratory Respiratory exam: Present: CTAB. Absent: accessory muscle use, rales, rhonchi, wheezes - Cardiovascular Cardiovascular exam: Present: RRR, +S1, +S2. Absent: diastolic murmur, gallop, rubs, systolic murmur - GI/Abdominal GI/Abdominal exam: Present: normal bowel sounds, soft, no peritoneal signs. Absent: distended, tenderness - Extremities Exam Extremities exam: Present: warm, radial pulses palpable and symmetrical. Absent: calf tenderness, cyanotic, pedal edema - Neurological Exam Neurological exam: Present: alert, oriented X3, no focal deficits. Absent: pronater drift, facial droop, speech deficit - Psychiatric Psychiatric exam: Present: normal affect, normal mood - Skin Skin exam: Present: dry, intact Internal Med - H&P Results - Labs CBC & Chem 7: 01/07/19 17:24 01/07/19 17:24 Labs: Short CBC 01/07/19 Range/Units 17:24 WBC 6.0 (4.3-11.1) K/mcL Hgb 13.1 (12.9-16.9) g/dL Hct 39.8 (37.5-50.1) % Plt Count 291 (140-400) K/mcL Neutrophils # 3.3 (1.6-8.9) K/mcL BMP 01/07/19 17:24 Sodium 138 Potassium 3.6 Chloride 102 Carbon Dioxide 24 BUN 18 Creatinine 0.82 Glucose 93 Calcium 9.8 Cardiac Enzymes 01/07/19 Range/Units 17:24 Troponin I < 0.03 (< 0.04) ng/mL - Impressions ITS Impressions Chest X-Ray 01/07/19 17:16 IMPRESSION: Minimal subsegmental atelectasis in the mid to basilar left lung. D/ / Austen Ansari MD / Austen Ansari MD Interpreting Provider: Austen Ansari MD - Assessment and plan (1) Palpitations Current Visit: Yes Status: Acute Assessment and plan: Recently diagnosed with A. fib, supraventricular tachycardia, PVCs Patient has had recent Holter monitor in November 2018 Found , PVCs, PACs, bigeminy, trigeminy Patient was placed on xeralto and Cardizem Cardiac echo 12/08/18 LVEF 65%. Normal LV chamber size, wall thickness and systolic function. Mild left ventricular diastolic dysfunction. Mildly dilated left atrium. Patient had a 45 minute episode of heart racing with near syncope today Cardiology was consulted in the emergency department recommended admission, they will see in the a.m. Plan: Cardiology consulted, appreciate recommendations Continuous cardiac monitoring Regular diet Continue home medications once verified (2) Near syncope Current Visit: Yes Status: Acute Assessment and plan: Associated with palpitations today No history of syncopal episodes Plan as #1 above (3) Chest pain Current Visit: No Status: Resolved Assessment and plan: Chest "squeeze" associated with palpitations today Initial troponin negative Initial ECG no acute ischemic changes Plan: Trend troponins Qualifiers: Chest pain type: unspecified Qualified Code(s): R07.9 - Chest pain, unspecified (4) Hypertension Current Visit: No Status: Chronic Assessment and plan: Known history of hypertension On lisinopril/hydrochlorothiazide Continue once verified Blood pressure been controlled thus far Continue to monitor Qualifiers: Hypertension type: essential hypertension Qualified Code(s): I10 - Essential (primary) hypertension (5) DVT prophylaxis Current Visit: No Status: Acute Assessment and plan: On xeralto - Time Spent With Patient Total time spent is greater than 50% in coordination of care (as documented) at patient's floor/unit and/or counseling patient: <Dirk Carlsonin Carissa - Last Filed: 01/07/19 23:23> Date of Encounter: 01/07/19 Internal Medicine - H&P: HPI History of present illness: Mr. Rodriguez is a 58 year old male All Systems PM: A 10-system review of systems was performed and is negative for pertinent findings except as documented above in the HPI. - Constitutional Vitals: Temp Pulse Resp BP Pulse Ox 98.1 F 66 16 121/77 97 01/07/19 20:03 01/07/19 20:03 01/07/19 20:03 01/07/19 20:03 01/07/19 20:03 Internal Med - H&P Results - Labs CBC & Chem 7: 01/07/19 17:24 01/07/19 17:24 Labs: Short CBC 01/07/19 Range/Units 17:24 WBC 6.0 (4.3-11.1) K/mcL Hgb 13.1 (12.9-16.9) g/dL Hct 39.8 (37.5-50.1) % Plt Count 291 (140-400) K/mcL Neutrophils # 3.3 (1.6-8.9) K/mcL BMP 01/07/19 17:24 Sodium 138 Potassium 3.6 Chloride 102 Carbon Dioxide 24 BUN 18 Creatinine 0.82 Glucose 93 Calcium 9.8 Cardiac Enzymes 01/07/19 Range/Units 17:24 Troponin I < 0.03 (< 0.04) ng/mL - Impressions ITS Impressions Chest X-Ray 01/07/19 17:16 IMPRESSION: Minimal subsegmental atelectasis in the mid to basilar left lung. D/ / Austen Ansari MD / Austen Ansari MD Interpreting Provider: Austen Ansari MD - Time Spent With Patient Total time spent is greater than 50% in coordination of care (as documented) at patient's floor/unit and/or counseling patient: - Attending Attestation I saw and evaluated the patient. I reviewed the residents note, performed my own physical examination and agree with findings and plan as documented in the residents note. Patient seen and examined on 01/07/19. She presented to the emergency room with history of palpitations. Has history of irregular heart rate, and has had a workup previously by cardiology. Patient resting comfortably in hospital bed. Telemetry overnight and will trend troponins to ensure nothing changes. Cardiology has been consult and will see the patient in the morning.
[2019-01-07] MEDS ORDERED: Fluticasone Propionate Nasal 50 MCG/SPRAY BOTTLE NS PRN (21:33)
[2019-01-07] MEDS ORDERED: *HR* Rivaroxaban 10 MG TABLET PO SCH (23:30)
[2019-01-08 06:28] LABS: Hematocrit 38.8 % (37.5-50.1); Hemoglobin 12.5 g/dL (12.9-16.9); Mean Corpuscular HGB Conc 32.2 g/dL (31.6-35.5); Mean Corpuscular Hemoglobin 26.2 pg (28.0-33.3); Mean Corpuscular Volume 81.3 fL (83.0-100.0); Mean Platelet Volume 9.8 fL (9.4-12.4); Platelet Count 254 K/mcL (140-400); Red Blood Count 4.77 M/mcL (4.19-5.50); Red Cell Distribution Width 14.3 % (11.5-14.5)
[2019-01-08 06:50] LABS: BUN/Creatinine Ratio 21 (6-26); Blood Urea Nitrogen 18 mg/dL (6-20); Calcium 9.5 mg/dL (8.6-10.3); Carbon Dioxide 27 mEq/L (23-29); Chloride 104 mEq/L (98-107); Glucose 111 mg/dL (70-105); Osmolality,Calculated 291 (280-300); Potassium 3.9 mEq/L (3.5-5.1); Sodium 139 mEq/L (136-145); eGFR For Non-African Americans > 60 (> 60)
[2019-01-08] MEDS ORDERED: Famotidine 20 MG TABLET PO SCH (09:00)
[2019-01-08] MEDS ORDERED: Loratadine 10 MG TABLET PO SCH (09:00)
[2019-01-08] MEDS ORDERED: Diltiazem CD (24hr) 180 MG CAPSULE PO SCH (09:00)
[2019-01-08] MEDS ORDERED: Aspirin Enteric Coated 81 MG Tablet PO SCH (09:00)
[2019-01-08] MEDS ORDERED: Lisinopril-HCTZ 20-12.5mg TABLET PO SCH (09:00)
[2019-01-08] MEDS ORDERED: Diltiazem CD (24hr) 240 MG CAPSULE PO SCH (09:15)
--- NOTE | 2019-01-08 09:21 | Cardiology Consult Note ---
<Lila Scott - Last Filed: 01/08/19 09:25> Date of Encounter: 01/08/19 Time of Encounter: 08:15 Assessment and Plan (1) PAF (paroxysmal atrial fibrillation) Status: Chronic Per cardiology: -Known PAF, on CCB and xarelto at home. -Presented with palpitations, chest tightness and ligthheadedness. -Upon presented ECG with SR, symptoms resolved when in SR. -Troponins negative x3. -Recent holter 12/2018 with Baseline SR, occasional PVCs, rare PACs, rare SVT kelby gest 11 beats. -11/2018 with LVEF 65%, mild diastolic dsyfunction, mildly dilated left atrium, mild aortic root dilation, no wall motion abnormalities. -Stress 02/2018 negative for ischemia. -Known FRANCESCA, compliant with CPAP. -Suspect symptoms related to afib, RVR. Now in SR. -Will increase CCB. Continue xarelto for anticoagulation. -Can consider event monitor upon discharge. -Recommend OP referral to EP. (2) [facility] (current) use of anticoagulants Status: Chronic Per cardiology: -On xarelto for anticoagulation. -Denies bleeding or blood loss. -Continue xarelto. Discussion w patient/family: The assessment and plan as outlined above was discussed with the patient who expressed understanding and agreement. All questions were answered. Thank you for involving us in the care of your patient. Please call with any questions. Discussed and reviewed with . History of Present Illness Consult date: 01/07/19 Requesting physician: Jacky Jaimes Consult reason: palpitations Chief complaint: palpitations History of present illness: Mr. Rodriguez is a 58 year old male with a relevant past medical history of paroxysmal a.fib on xarelto for anticoagulation, SVT, HTN, HLD, FRANCESCA compliant with CPAP, depression, OA, anemia, who presented t [facility] with complaints of pa lpitations. Patient states he was sitting in his car when he had sudden onset of palpitations. Reports some lightheadedness and chest tightness with palpitations. Patient states symptoms lasted for about 45 minutes and then resolved spontaneously. Denies current palpitations or chest heaviness. Past Med Surg Social Fam HX - Past Medical History Attestation: Yes The following information was validated with the patient. Source: patient, old records reviewed Medical history: atrial fibrillation, hyperlipidemia, hypertension, SVT, other Additional medical history: FRANCESCA, seasonal allergies, kidney stones, anemia Psychiatric history: depression - Past Surgical History Surgical History: orthopedic, other, other Additional surgical history: right shoulder replacement two months ago. multiple orthopedic surgeries - Social History Smoking Status: Never smoker Smokeless Tobacco Status: No Alcohol use: none Drug use: none - Family History Father Adopted: [place]: Juan Rodriguez Family Member Ethnicity: Non- Living Status: Age at : 73 Cause of : Heart attack Hx Family Cardiac Disorders: Yes Hx Family Respiratory Disorders: Yes Hx Family Cancer: Yes Hx Family GI Disorders: No Hx Family Genitourinary Disorders: No Hx Family Endocrine Disorder: Yes Hx Family Musculoskeletal Disorders: No Hx Family Neuromuscular Disorders: No Hx Family Neurologic Disorders: No Hx Family HEENT Disorders: No Hx Family Autoimmune Disorders: No Hx Family Reproductive Disorders: No Hx Family Psychosocial Disorders: No Hx Family Medical Disorders: No Mother Hx Family Cardiac Disorders: Yes (HTN) Hx Family Endocrine Disorder: Yes (DM) Medications and Allergies RX: Citalopram [CeleXA] 20 mg PO HS 01/06/18 [History] RX: Dicyclomine [Bentyl] 20 mg PO BID 01/06/18 [History] RX: Famotidine [Pepcid] 20 mg PO DAILY 01/06/18 [History] RX: Fluticasone Propionate Nasal [Flonase] 2 spr NS DAILY PRN 01/06/18 [History] RX: Meloxicam 15 mg PO DAILY 01/06/18 [History] RX: Montelukast [Singulair] 10 mg PO DAILY 01/06/18 [History] RX: Aspirin Enteric Coated [Aspirin EC] 81 mg PO DAILY 05/04/18 [History] RX: Ferrous Sulfate 325 mg PO TID 05/04/18 [History] RX: Atorvastatin Calcium [Lipitor] 20 mg PO DAILY 09/04/18 [History] RX: Metformin HCl 500 mg PO QPM 09/04/18 [History] RX: Cetirizine HCl [24Hour Allergy] 10 mg PO DAILY 12/07/18 [History] RX: Ergocalciferol (VITAMIN D2) [Vitamin D2] 50,000 unit SQ WE 12/07/18 [H istory] RX: Rivaroxaban [Xarelto] 20 mg PO HS 01/07/19 [History] RX: Diltiazem CD (24hr) [Cardizem CD] 240 mg PO DAILY #30 cap.er.24h 01/08/19 [Rx] RX: Glycopyrrolate [Robinul] 1 mg PO BID 01/08/19 [History] RX: Lisinopril-HCTZ 20-12.5 [Prinzide 20-12.5] 1 tab PO BID 01/08/19 [History] Allergy/AdvReac Type Severity Reaction Status Date / Time No Known Allergies Allergy Verified 01/08/19 09:58 All Systems Review: The remainder of the systems were reviewed and are negative - Cardiovascular Cardiovascular: as per HPI, chest pain at rest, lightheadedness, palpitations, rapid heart rate Physical Examination Vital Signs, Last 4 Hours Temp Pulse Resp BP Pulse Ox 01/08/19 07:25 97.8 F 70 16 127/74 94 General: Conversant, No Apparent Distress HEENT: Atraumatic, Normocephaly, Mucus Membranes Moist Neck: No JVD, Normal carotid pulses Cardiac: Reg Rate and Rhythm, Normal S1 and S2, No Murmur Lungs: Normal Breath Sounds, No Wheeze, Rales, Rhonchi Neuro: Alert and responsive, No focal deficits noted Abdomen: Soft, Non-Tender Skin: No rashes noted on visualized skin Musculoskeletal: No Chest Wall Tenderness Extremities: No Clubbing, No Cyanosis, No Edema, Normal Pulses Results 01/08/19 06:06 01/08/19 06:06 Lab Results Impressions Chest X-Ray 01/07/19 17:16 IMPRESSION: Minimal subsegmental atelectasis in the mid to basilar left lung. D/ / Austen Ansari MD / Austen Ansari MD Interpreting Provider: Austen Ansari MD Active Medications Aspirin (Aspirin Ec) 81 mg PO DAILY [facility] Stop: 07/10/19 09:01 Atorvastatin Calcium (Lipitor) 20 mg PO DAILY [facility] Stop: 07/10/19 09:01 Citalopram Hydrobromide (Celexa) 20 mg PO HS [facility] Stop: 07/10/19 21:01 Dicyclomine HCl (Bentyl) 20 mg PO BID [facility] Stop: 07/10/19 09:01 Diltiazem HCl (Cardizem Cd) 240 mg PO DAILY [facility] Stop: 07/10/19 09:16 Ergocalciferol (Drisdol (50,000 Unit)) 50,000 unit PO WE [facility] Stop: 07/14/19 09:01 Famotidine (Pepcid) 20 mg PO DAILY [facility]; Protocol Stop: 07/10/19 09:01 Ferrous Sulfate (Ferrous Sulfate) 325 mg PO TIDWM [facility] Stop: 07/10/19 08:01 Fluticasone Propionate (Flonase) 100 mcg NS DAILY PRN; Protocol PRN Reason: Allergy Symptoms Stop: 07/09/19 21:34 Lisinopril/HCTZ (Prinzide 20-12.5) 1 each PO DAILY [facility] Stop: 07/10/19 09:01 Loratadine (Claritin) 10 mg PO DAILY [facility] Stop: 07/10/19 09:01 Montelukast Sodium (Singulair) 10 mg PO QPM [facility] Stop: 07/10/19 18:01 Naloxone HCl (Narcan) 0.4 mg IVP Q2M PRN PRN Reason: SEE COMMENTS Stop: 07/09/19 20:27 Rivaroxaban (Xarelto) 20 mg PO HS [facility] Stop: 07/09/19 23:31 Last Admin: 01/07/19 23:50 Dose: 20 mg Laboratory Tests 01/07/19 01/07/19 01/08/19 17:24 23:23 06:06 Hct Creatinine 0.87 Troponin I < 0.03 < 0.03 01/08/19 01/08/19 06:06 06:06 Hct 38.8 Creatinine Troponin I < 0.03 - Imaging and Cardiology Chest Xray: report reviewed Stress Test: report reviewed Echo: report reviewed - EKG Interpretation EKG results cardiology: personally reviewed (ECG with SR, HR 72. PVC noted.), other (Telemetry reviewed with average HR previous 12 hours noted to be 71, SR. PVCs and PACs noted.) Consult Discharge Plan - Plan Instructions: Diltiazem (By mouth), Atrial Fibrillation (DC) Additional Instructions: Cardio will arrange for EP appointment, and patient will need event monitor Referrals: Radha Durant, PER DIEM NURSE [Primary Care Provider] - (An appointment has been requested. The office will contact you at home with an appointment. ) Prescriptions: RX: Diltiazem CD (24hr) [Cardizem CD] 240 mg PO DAILY #30 cap.er.24h <Shahid Sibley - Last Filed: 01/08/19 17:49> Date of Encounter: 01/08/19 - Attending Attestation Patient was seen and evaluated independently by me. Findings, assessment and plan were discussed at length with patient, questions answered. Agree with nurse practitioner's/resident's documentation. Addition as follows, 58 yoCM ho PAF on xarelto/cardizem, SVT, FRANCESCA, HTN, HLD. P/w prolonged non-exe rtional recurrent palpitations with dizziness w/o syncope, similar episode once a wk. Recent Holter asymptomatic with occ PVC, rare PAC and non-sustained SVT. ECG and Tele SR, PVCs, PACs. Trop neg. Recent TTE preserved EF, mild DD and mild LAE. VSS, CTA, RR, no LE edema. K3.6. A: Presyncope with prolonged palpitations, ddx PAF RVR with or w/o conversion pauses, pSVT Frequency 1/wk need event monitor P: up on cardizem, c/w xarelto event monitor may need class Ic AAD if symptomatic PAF RVR, will need PPM if conversion pause may need EPS/ablation if pSVT failed AVN blockers will need EP clinic Shahid Sibley MD, PhD Assessment and Plan Discussion w patient/family: The assessment and plan as outlined above was discussed with the patient and/or family members who expressed understanding and agreement. All questions were answered. Thank you for involving us in the care of your patient. Please call with any questions. History of Present Illness History of present illness: Mr. Rodriguez is a 58 year old male All Systems Review: The remainder of the systems were reviewed and are negative Results 01/08/19 06:06 01/08/19 06:06 Lab Results 01/07/19 01/07/19 01/07/19 17:24 17:24 17:24 WBC 6.0 Hgb 13.1 Hct 39.8 Plt Count 291 INR 1.2 APTT 44.7 H Sodium 138 Potassium 3.6 Chloride 102 Carbon Dioxide 24 BUN 18 Creatinine 0.82 Glucose 93 Calcium 9.8 Troponin I < 0.03 01/07/19 01/08/19 01/08/19 23:23 06:06 06:06 WBC Hgb Hct Plt Count INR APTT Sodium 139 Potassium 3.9 Chloride 104 Carbon Dioxide 27 BUN 18 Creatinine 0.87 Glucose 111 H Calcium 9.5 Troponin I < 0.03 < 0.03 01/08/19 06:06 WBC 5.6 Hgb 12.5 L Hct 38.8 Plt Count 254 INR APTT Sodium Potassium Chloride Carbon Dioxide BUN Creatinine Glucose Calcium Troponin I
[2019-01-08 11:14] VITALS: BP 119/70
--- NOTE | 2019-01-08 11:58 | Discharge Summary ---
- NOTES TO OUTPATIENT PROVIDER Notes to Outpatient Provider: Known A-Fib and SVT, presented with palpitations x45 minutes resolved spontaneously, Cardio to arrange for Event Monitor and EP follow up Orders not resulted at time of discharge: Pending orders 01/08/19 10:53 ECG event monitor 4 weeks [ECG] Routine Date of Encounter: 01/08/19 Time of Encounter: 11:55 - Discharge Diagnosis (1) Palpitations Priority: Primary Status: Acute Hospital course: Dear Doctors, I recently had the opportunity to care for this patient during their hospital st ay at [facility]. Mr. Rodriguez is a 58 year old male w hx obesity, FRANCESCA, HTN, pre-DM2, A-Fib on AC, and SVT, who presented at time of admission with palpitations. He's had palpitations before but when they started yesterday, they lasted almost an hour and he felt lightheaded and thus came to the ED. In the hospital, patient in NSR with occasional PVCs. Cardiology evaluated patient and recommended increase home diltiazem, arrange for event monitor, and refer patient as outpatient to Electrophysiology. 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 Please contact me with any questions or concerns regarding their hospital stay. Sincerely, Yossi Barnes MD - Time Spent with Patient Total time spent providing and/or coordinating discharge services: - Discharge Medications Prescriptions: New Diltiazem CD (24hr) [Cardizem CD] 240 mg PO DAILY #30 cap.er.24h Continue Fluticasone Propionate Nasal [Flonase] 2 spr NS DAILY PRN PRN Reason: Allergy Symptoms Meloxicam 15 mg PO DAILY Famotidine [Pepcid] 20 mg PO DAILY Montelukast [Singulair] 10 mg PO DAILY Dicyclomine [Bentyl] 20 mg PO BID Citalopram [CeleXA] 20 mg PO HS Aspirin Enteric Coated [Aspirin EC] 81 mg PO DAILY Ferrous Sulfate 325 mg PO TID Atorvastatin Calcium [Lipitor] 20 mg PO DAILY Metformin HCl 500 mg PO QPM Ergocalciferol (VITAMIN D2) [Vitamin D2] 50,000 unit SQ WE Cetirizine HCl [24Hour Allergy] 10 mg PO DAILY Rivaroxaban [Xarelto] 20 mg PO HS Glycopyrrolate [Robinul] 1 mg PO BID Lisinopril-HCTZ 20-12.5 [Prinzide 20-12.5] 1 tab PO BID Discontinued Diltiazem CD (24hr) [Cardizem CD] 180 mg PO DAILY #30 cap.er.24h Home Medications: Citalopram [CeleXA] 20 mg PO HS 01/06/18 [History] Dicyclomine [Bentyl] 20 mg PO BID 01/06/18 [History] Famotidine [Pepcid] 20 mg PO DAILY 01/06/18 [History] Fluticasone Propionate Nasal [Flonase] 2 spr NS DAILY PRN 01/06/18 [History] Meloxicam 15 mg PO DAILY 01/06/18 [History] Montelukast [Singulair] 10 mg PO DAILY 01/06/18 [History] Aspirin Enteric Coated [Aspirin EC] 81 mg PO DAILY 05/04/18 [History] Ferrous Sulfate 325 mg PO TID 05/04/18 [History] Atorvastatin Calcium [Lipitor] 20 mg PO DAILY 09/04/18 [History] Metformin HCl 500 mg PO QPM 09/04/18 [History] Cetirizine HCl [24Hour Allergy] 10 mg PO DAILY 12/07/18 [History] Ergocalciferol (VITAMIN D2) [Vitamin D2] 50,000 unit SQ WE 12/07/18 [History] Rivaroxaban [Xarelto] 20 mg PO HS 01/07/19 [History] Diltiazem CD (24hr) [Cardizem CD] 240 mg PO DAILY #30 cap.er.24h 01/08/19 [Rx] Glycopyrrolate [Robinul] 1 mg PO BID 01/08/19 [History] Lisinopril-HCTZ 20-12.5 [Prinzide 20-12.5] 1 tab PO BID 01/08/19 [History] Allergies/Adverse Reactions: Allergy/AdvReac Type Severity Reaction Status Date / Time No Known Allergies Allergy Verified 01/08/19 09:58 Date of admission: 01/07/19 19:49 Primary care physician: Radha Durant CNP Consults: 01/07/19 19:09 Consult to Cardiology [CONS] Stat Comment: Consulting Provider: Cardiology Nani Reason for Consult: Palpitations Time Notified: 19:10 Call Completed: Yes - Constitutional Vitals: Temp Pulse Resp BP Pulse Ox 98 F 77 16 119/70 96 01/08/19 11:14 01/08/19 11:14 01/08/19 11:14 01/08/19 11:14 01/08/19 11:14 General appearance: Present: A&O X 3 Exam: General: NAD, AAOx3, good eye contact, well appearing Thoracic: Normal breath sounds b/l, no wheezing or crackles Cardio: Normal S1 and S2, regular rate and rhythm but with occasional early beats, no murmurs Abdomen: Soft, nontender, nondistended. Extremities: Warm, well perfused. DP pulses 2+ b/l. No edema. Skin: Intact. No rashes, bruises, or ulcers Neuro: Awake, fully oriented. Speech fluent - Patient Status Disposition: Home, Self-Care Condition: Fair Functional capacity at discharge: independent ambulation Overall status at discharge: patient is back to baseline - Discharge Instructions Follow Up With: Radha Durant CNP [Primary Care Provider] - Additional Instructions: Cardio will arrange for EP appointment, and patient will need event monitor - Diet and Activity Activity: resume usual activities as tolerated Diet: advance to your usual diet
--- NOTE | 2019-01-10 08:28 | Electrocardiograph Report ---
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
== END 2019-01-08 13:26 | disposition home or self-care (01) ==
LOC: 3BNU 16:53 → EMEROOARM 16:53 → SUATTDRO 19:49 → 3BNU 20:07
PROVIDERS: ADMIT Family Medicine; ATTEND Internal Medicine

== ENCOUNTER 2020-05-14 13:32 | Inpatient (IN) ==
[~2020-05-14 13:32] MED LIST: Total Joint Mixture (50 ml) INTRAART ONE
[2020-05-14] MEDS ORDERED: CeFAZolin Syr 3,000MG/30 ML 3,000 MG/30 ML SYRINGE IVPB ONE (13:51)
[2020-05-14] MEDS ORDERED: Ringers Solution, Lactated 1,000 ML IVC SCH (14:00)
[2020-05-14] MEDS ORDERED: Acetaminophen IV 1,000 MG/100 ML BAG IVPB ONE ×2 (14:59→18:31)
[2020-05-14] MEDS ORDERED: Pregabalin 75 MG CAPSULE PO ONE ×2 (15:20→18:31)
[2020-05-14] MEDS ORDERED: *HR* Propofol 200 MG/20 ML VIAL IVP ONE (15:48)
[2020-05-14] MEDS ORDERED: *HR* Rocuronium Bromide 50 MG/5 ML VIAL ONE (15:48)
[2020-05-14] MEDS ORDERED: Vancomycin 1,000 MG VIAL ONE (15:51)
[2020-05-14] MEDS ORDERED: Ethanol\\Acetic Acid\\Na Ace\\Ben 1,000 ML IRRIG.SOLN IR ONE (15:51)
[2020-05-14] MEDS ORDERED: *HR* Midazolam HCl 2 MG/2 ML VIAL ONE (16:16)
[2020-05-14] MEDS ORDERED: Ropivacaine/PF 0.5% 30 ML VIAL ONE (16:18)
[2020-05-14] MEDS ORDERED: Tranexamic Acid 1,000 MG/10 ML VIAL ONE (16:36)
[2020-05-14] MEDS ORDERED: *HR* HYDROMORPHONE 2 MG/ML VIAL ONE (16:46)
[2020-05-14] MEDS ORDERED: Ondansetron 4 MG/2 ML VIAL ONE (18:17)
[2020-05-14] MEDS ORDERED: Dexamethasone 4 MG/ML VIAL ONE (18:17)
[2020-05-14] MEDS ORDERED: *HR* HYDROmorphone 2 MG TABLET PO PRN (18:31)
[2020-05-14] MEDS ORDERED: *HR* Promethazine 25 MG/ML VIAL IVP PRN ×2 (18:31→19:21)
[2020-05-14] MEDS ORDERED: *HR* OxyCODONE Immed Rel 5 MG TABLET PO PRN ×2 (18:31→19:21)
[2020-05-14] MEDS ORDERED: Famotidine 20 MG/2 ML VIAL IVP ONE (18:31)
[2020-05-14] MEDS ORDERED: *HR* Labetalol 20 MG/4 ML SYRINGE IVP PRN (18:31)
[2020-05-14] MEDS ORDERED: *HR* HYDROmorphone PF 0.5 MG/0.5 ML SYRINGE IVP PRN (18:31)
[2020-05-14 19:05] LABS: Hematocrit 37.7 % (37.5-50.1); Hemoglobin 11.6 g/dL (12.9-16.9)
[2020-05-14] MEDS ORDERED: HYDROcodone BIT/Homatropine 5 MG TABLET PO PRN (19:21)
[2020-05-14] MEDS ORDERED: Dextrose Gel 15 GM/37.5 ML TUBE PO PRN ×2 (19:21)
[2020-05-14] MEDS ORDERED: Sennosides 8.6 MG TABLET PO PRN (19:21)
[2020-05-14] MEDS ORDERED: MOM Conc 10 ML UD.LIQ PO PRN (19:21)
[2020-05-14] MEDS ORDERED: Ondansetron 4 MG/2 ML VIAL IVP PRN (19:21)
[2020-05-14] MEDS ORDERED: *HR* Dextrose 50 % in Water (Vial) 50 ML VIAL IVP PRN (19:21)
[2020-05-14] MEDS ORDERED: D5% in Water 1,000 ML IVC PRN (19:21)
[2020-05-14] MEDS ORDERED: *HR* Metformin 500 MG TABLET PO SCH (19:21)
[2020-05-14] MEDS ORDERED: Naloxone 0.4 MG/ML INJ IVP PRN (19:21)
[2020-05-14] MEDS: Insulin LISPRO 300 UNITS/3 ML VIAL SQ SCH (19:54)
[2020-05-14] MEDS: Lisinopril-HCTZ 20-12.5mg TABLET PO SCH (20:54)
[2020-05-14] MEDS: Ascorbic Acid 500 MG TABLET PO SCH (20:54)
[2020-05-14] MEDS ORDERED: Insulin LISPRO 300 UNITS/3 ML VIAL SQ SCH (21:00)
[2020-05-14] MEDS ORDERED: Famotidine 20 MG TABLET PO SCH (21:00)
[2020-05-14] MEDS: Fluticasone Propionate Nasal 50 MCG/SPRAY BOTTLE NS SCH (21:40)
[2020-05-14] MEDS: ceFAZolin 3,000 MG in 0.9 % Sodium Chloride 100 ML IVPB SCH (23:50)
[2020-05-15 05:06] LABS: Basophils % 0.2 %; Hematocrit 32.9 % (37.5-50.1); Hemoglobin 10.3 g/dL (12.9-16.9); Immature Granulocytes % 0.5 % (0-4); Lymphocytes # 0.9 K/mcL (0.6-4.6); Lymphocytes % 6.9 %; Mean Corpuscular HGB Conc 31.3 g/dL (31.6-35.5); Mean Corpuscular Hemoglobin 24.6 pg (28.0-33.3); Mean Corpuscular Volume 78.5 fL (83.0-100.0); Mean Platelet Volume 9.4 fL (9.4-12.4); Monocytes # 0.7 K/mcL (0.0-1.3); Monocytes % 5.3 %; Neutrophils # 11.3 K/mcL (1.6-8.9); Platelet Count 266 K/mcL (140-400); Red Blood Count 4.19 M/mcL (4.19-5.50); Red Cell Distribution Width 15.8 % (11.5-14.5); Segmented Neutrophils % 87.1 %
[2020-05-15 05:25] LABS: BUN/Creatinine Ratio 19 (6-26); Blood Urea Nitrogen 20 mg/dL (6-20); Calcium 8.6 mg/dL (8.6-10.3); Carbon Dioxide 22 mEq/L (23-29); Chloride 99 mEq/L (98-107); Glucose 170 mg/dL (70-105); Osmolality,Calculated 285 (280-300); Potassium 4.4 mEq/L (3.5-5.1); Sodium 134 mEq/L (136-145); eGFR For African Americans > 60 (> 60); eGFR For Non-African Americans > 60 (> 60)
[2020-05-15] MEDS ORDERED: Glycopyrrolate 1 MG TABLET PO SCH (09:00)
[2020-05-15] MEDS ORDERED: DilTIAZem CD (24hr) 240 MG CAP.ER.24H PO SCH (09:00)
[2020-05-15] MEDS ORDERED: Multivit/Ca/Min/Fe/FA 1 TAB TABLET PO SCH (09:00)
[2020-05-15] MEDS ORDERED: Lactulose Oral Soln 20 GM/30 ML UDC PO SCH (09:00)
[2020-05-15] MEDS ORDERED: *HR* Rivaroxaban 10 MG TABLET PO SCH (09:00)
[2020-05-15] MEDS ORDERED: Loratadine 10 MG TABLET PO SCH (09:00)
[2020-05-15] MEDS: Lisinopril-HCTZ 20-12.5mg TABLET PO SCH (09:38)
[2020-05-15] MEDS: Ascorbic Acid 500 MG TABLET PO SCH (09:39)
[2020-05-15] MEDS: Ringers Solution, Lactated 1,000 ML IVC SCH ×2 (09:40→09:41)
[2020-05-15] MEDS: ceFAZolin 3,000 MG in 0.9 % Sodium Chloride 100 ML IVPB SCH (09:40)
[2020-05-15] MEDS: Insulin LISPRO 300 UNITS/3 ML VIAL SQ SCH (09:40)
[2020-05-15] MEDS: Fluticasone Propionate Nasal 50 MCG/SPRAY BOTTLE NS SCH (09:41)
[2020-05-15 11:06] VITALS: BP 109/70
[2020-05-16] MEDS ORDERED: Ergocalciferol (VIT D2) 50,000 UNIT (1.25MG) CAP PO SCH (09:00)
== END 2020-05-15 13:10 | disposition home or self-care (01) | DRG 467 ==
LOC: SAMDAY 13:32 → 3NENU 14:33
PROVIDERS: ADMIT Orthopaedic Surgery; ATTEND Orthopaedic Surgery

== ENCOUNTER 2022-05-12 07:21 | Observation (INO) ==
[2022-05-12] MEDS ORDERED: 0.9 % Sodium Chloride 1,000 ML ONE ×2 (07:28→09:01)
[2022-05-12] MEDS ORDERED: Famotidine 20 MG/2 ML VIAL ONE (08:54)
[2022-05-12] MEDS ORDERED: Protamine Sulfate 50 MG/5 ML VIAL IVP ONE (09:00)
[2022-05-12] MEDS ORDERED: Heparin 1,000 UNITS/500 mL 2,000 ML ONE (09:01)
[2022-05-12] MEDS ORDERED: *HR* Heparin 10,000 UNIT/10 ML VIAL ONE ×2 (09:01→09:09)
[2022-05-12] MEDS ORDERED: Iopamidol - 370 200 ML INFUS..BTL ONE (09:02)
[2022-05-12] MEDS ORDERED: *HR* FentaNYL (PF) 100 MCG/2 ML VIAL ONE ×2 (10:01→10:39)
[2022-05-12] MEDS ORDERED: Naloxone 0.4 MG/ML INJ IVP PRN (11:41)
[2022-05-12] MEDS ORDERED: *HR* OxyCODONE Immed Rel 5 MG TABLET PO PRN (11:43)
[2022-05-12] MEDS ORDERED: polyethylene glycoL 3350 17 GM POWD.PACK PO PRN (11:43)
[2022-05-12] MEDS ORDERED: hydrOXYzine pamoate 25 MG CAPSULE PO PRN (11:43)
[2022-05-12] MEDS ORDERED: *HR* Midazolam HCl 2 MG/2 ML VIAL ONE (12:17)
[2022-05-12] MEDS ORDERED: Acetaminophen IV 1,000 MG/100 ML BAG IVPB ONE ×2 (12:31→12:43)
[2022-05-12] MEDS ORDERED: *HR* OxyCODONE Immed Rel 5 MG TABLET PO ONE (12:49)
[2022-05-12] MEDS ORDERED: ROPIVACAINE/PF/NS 0.25% 1 EACH SYRINGE INTRAART ONE (13:02)
[2022-05-12] MEDS ORDERED: Glycopyrrolate 1 MG TABLET PO SCH (18:00)
[2022-05-12] MEDS ORDERED: *HR* Metformin 500 MG TABLET PO SCH (18:00)
[2022-05-12] MEDS ORDERED: Famotidine 20 MG TABLET PO SCH (21:00)
[2022-05-12] MEDS: Lisinopril-HCTZ 20-12.5mg TABLET PO SCH (21:55)
[2022-05-13] MEDS ORDERED: DilTIAZem CD (24hr) 240 MG CAP.ER.24H PO SCH (09:00)
[2022-05-13] MEDS ORDERED: *HR* Rivaroxaban 10 MG TABLET PO SCH (09:00)
[2022-05-13] MEDS ORDERED: BIFIDOBACTERIUM INFANTIS 4 MG PO SCH (09:00)
[2022-05-13] MEDS ORDERED: Linaclotide [Linzess] 72 MCG Capsule PO SCH (09:00)
[2022-05-13] MEDS ORDERED: Loratadine 10 MG TABLET PO SCH (09:00)
[2022-05-13] MEDS: Lisinopril-HCTZ 20-12.5mg TABLET PO SCH (09:18)
[2022-05-13 09:29] VITALS: BP 146/73; PULSE 87; TEMP 98.6; O2SAT 94
== END 2022-05-13 14:19 | disposition home or self-care (01) ==
LOC: INVDIALAB 07:21 → 2NENU 13:57 → INTOOBSV 13:57
PROVIDERS: ADMIT Internal Medicine Clinical Cardiac Electrophysiology; ATTEND Internal Medicine Clinical Cardiac Electrophysiology